=== PATIENT | male | born 1970 | race African-American/Black ===

== ENCOUNTER 2019-12-13 19:45 | Inpatient (IN) ==
[~2019-12-13 19:45] MED LIST: CLINDAMYCIN INJ 600 MG in PREMIX 1 EACH IV SCH
[2019-12-13] MEDS ORDERED: ONDANSETRON 4 MG/2 ML VIAL IV STA (21:17)
[2019-12-13] MEDS ORDERED: fentaNYL 100 MCG/2 ML VIAL IV STA (21:17)
[2019-12-13] MEDS ORDERED: PIPERACILLIN/TAZOBACTAM 3,375 MG in SODIUM CHLORIDE 0.9% 100 ML IV STA (21:17)
[2019-12-13] MEDS ORDERED: SODIUM CHLORIDE 0.9% 500 ML IV STA (21:17)
[2019-12-13] MEDS ORDERED: VANCOMYCIN INJ 1,000 MG in SODIUM CHLORIDE 0.9% 250 ML IV STA (21:17)
[2019-12-13 22:09] LABS: Basophils % 0.2 % (0.0-0.8); Eosinophils # 0.1 10*3/uL (0.0-0.87); Eosinophils % 0.8 % (0.00-10.9); Hematocrit 40.7 VOL% (42.0-52.0); Hemoglobin 13.6 GM/DL (14.0-18.0); Immature Granulocytes % 0.3 %; Immature Granulocytes Absolute 0.04 #; Lymphocytes # 1.3 10*3/uL (1.4-4.0); Lymphocytes % 9.9 % (21.2-54.2); Mean Corpuscular HGB Conc 33.4 GM/DL (32-36); Mean Corpuscular Volume 81.9 FL (87-102); Mean Platelet Volume 11.1 FL (9.6-12.0); Monocytes % 8.8 % (1.7-12.7); Platelet Count 308 T/CUMM (130-400); Red Blood Count 4.97 MC/CUMM (3.8-5.5); Red Cell Distribution Width 13.4 % (9.3-17.3)
[2019-12-13 22:18] LABS: INR 1.1; PT Patient Result 11.6 SECS (9.8-11.9)
[2019-12-13 22:48] LABS: Alanine Aminotransferase 19 U/L (16-61); Albumin 2.3 G/DL (3.4-5.0); Alkaline Phosphatase 81 U/L (45-117); Aspartate Amino Transferase 19 U/L (0-37); Blood Urea Nitrogen 22 MG/DL (7-18); Calcium 9.2 MG/DL (8.5-10.1); Estimated Glom Filtration Rate 54 ML/MIN; Ferritin 626.1 ng/ml (26-388); Glucose 367 MG/DL (74-106); Osmolality,Calculated 274.1 MOS/KG (273-304); Total Protein 8.7 G/DL (6.4-8.3); Troponin I 0.019 NG/ML (0.00-0.045)
[2019-12-13] MEDS ORDERED: PROMETHAZINE 25 MG/1 ML VIAL IM PRN (23:56)
[2019-12-13] MEDS ORDERED: ZALEPLON 5 MG CAPSULE PO PRN (23:56)
[2019-12-13] MEDS ORDERED: NICOTINE 21 MG/24 HR PATCH TRANSDERM PRN (23:56)
[2019-12-13] MEDS ORDERED: GLUCAGON 1 MG VIAL IM PRN (23:56)
[2019-12-13] MEDS ORDERED: diphenhydrAMINE CAP 25 MG CAPSULE PO PRN (23:56)
[2019-12-13] MEDS ORDERED: DEXTROSE 50% 25 GM/50 ML VIAL IV PRN ×2 (23:56)
[2019-12-13] MEDS ORDERED: guaiFENesin/DM ER 600-30 MG TABLET PO PRN (23:56)
[2019-12-13] MEDS ORDERED: ONDANSETRON 4 MG/2 ML VIAL IV PRN (23:56)
[2019-12-14] MEDS ORDERED: SODIUM CHLORIDE 0.9% 1,000 ML IV ONE (01:16)
[2019-12-14] MEDS: INSULIN LISPRO 100 UNIT/ML SUBCUT SCH ×5 (02:13→21:30)
[2019-12-14] MEDS: CLINDAMYCIN INJ 600 MG in PREMIX 1 EACH IV SCH ×3 (02:14→17:24)
[2019-12-14] MEDS: ENOXAPARIN 100 MG/ML SYRINGE SUBCUT SCH ×2 (02:14→13:41)
[2019-12-14] MEDS: SODIUM CHLORIDE 0.9% 1,000 ML IV SCH ×2 (04:33→21:29)
[2019-12-14 06:10] LABS: Basophils % 0.2 % (0.0-0.8); Eosinophils # 0.2 10*3/uL (0.0-0.87); Eosinophils % 1.4 % (0.00-10.9); Hematocrit 34.1 VOL% (42.0-52.0); Hemoglobin 11.4 GM/DL (14.0-18.0); Immature Granulocytes % 0.4 %; Immature Granulocytes Absolute 0.04 #; Lymphocytes # 1.7 10*3/uL (1.4-4.0); Lymphocytes % 15.4 % (21.2-54.2); Mean Corpuscular HGB Conc 33.4 GM/DL (32-36); Mean Corpuscular Volume 82.8 FL (87-102); Mean Platelet Volume 11.2 FL (9.6-12.0); Monocytes % 9.8 % (1.7-12.7); Neutrophils % 72.8 % (38.7-73.9); Platelet Count 265 T/CUMM (130-400); Red Blood Count 4.12 MC/CUMM (3.8-5.5); Red Cell Distribution Width 13.6 % (9.3-17.3); White Blood Count 10.8 T/CUMM (4-12)
[2019-12-14 06:31] LABS: Calcium 8.1 MG/DL (8.5-10.1); Osmolality,Calculated 279.5 MOS/KG (273-304)
[2019-12-14] MEDS ORDERED: ENOXAPARIN 40 MG/0.4 ML SYRINGE SUBCUT SCH (09:00)
[2019-12-14] MEDS: amLODIPine 10 MG TABLET PO SCH (09:24)
[2019-12-14] MEDS: METOPROLOL SUCCINATE XL 50 MG TABLET PO SCH (09:24)
[2019-12-14] MEDS: TAMSULOSIN 0.4 MG CAPSULE PO SCH (09:24)
[2019-12-14] MEDS: DOCUSATE SODIUM 100 MG CAPSULE PO SCH ×2 (09:24→21:30)
[2019-12-14] MEDS: PANTOPRAZOLE 40 MG TABLET PO SCH (09:24)
[2019-12-15] MEDS: SODIUM CHLORIDE 0.9% 1,000 ML IV SCH ×3 (01:41→17:31)
[2019-12-15] MEDS: CLINDAMYCIN INJ 600 MG in PREMIX 1 EACH IV SCH ×3 (02:00→17:30)
[2019-12-15] MEDS: ENOXAPARIN 100 MG/ML SYRINGE SUBCUT SCH ×2 (02:01→14:09)
[2019-12-15] MEDS: hydrALAZINE 20 MG/1 ML VIAL IV PRN (04:38)
[2019-12-15] MEDS: ACETAMINOPHEN 325 MG TABLET PO PRN ×2 (04:40→20:56)
[2019-12-15] MEDS ORDERED: LABETALOL 20 MG/4 ML SYRINGE IV ONE (08:13)
[2019-12-15] MEDS ORDERED: ceFAZolin 1,000 MG in SYRINGE 1 EACH IV ONE (08:14)
[2019-12-15] MEDS ORDERED: LIDOCAINE 2% 5 ML VIAL ONE (08:14)
[2019-12-15] MEDS ORDERED: propofoL 200 MG/20 ML VIAL IV ONE (08:14)
[2019-12-15] MEDS ORDERED: SODIUM CHLORIDE 0.9% 250 ML IV ONE (08:15)
[2019-12-15] MEDS ORDERED: MIDAZOLAM 2 MG/2 ML VIAL ONE (08:15)
[2019-12-15] MEDS ORDERED: KETAMINE 500 MG/10 ML VIAL ONE (08:15)
[2019-12-15] MEDS ORDERED: fentaNYL 100 MCG/2 ML VIAL ONE (08:15)
[2019-12-15] MEDS ORDERED: ONDANSETRON 4 MG/2 ML VIAL ONE (08:15)
[2019-12-15] MEDS ORDERED: LACTATED RINGERS 1,000 ML IV ONE (08:15)
[2019-12-15] MEDS ORDERED: LABETALOL 100 MG/20 ML VIAL IV ONE (08:16)
[2019-12-15 09:09] LABS: Basophils % 0.1 % (0.0-0.8); Eosinophils # 0.2 10*3/uL (0.0-0.87); Eosinophils % 1.8 % (0.00-10.9); Hematocrit 34.8 VOL% (42.0-52.0); Hemoglobin 11.3 GM/DL (14.0-18.0); Immature Granulocytes % 0.4 %; Immature Granulocytes Absolute 0.04 #; Lymphocytes # 1.8 10*3/uL (1.4-4.0); Lymphocytes % 19.5 % (21.2-54.2); Mean Corpuscular HGB Conc 32.5 GM/DL (32-36); Mean Corpuscular Volume 83.5 FL (87-102); Mean Platelet Volume 10.8 FL (9.6-12.0); Monocytes % 8.9 % (1.7-12.7); Neutrophils % 69.3 % (38.7-73.9); Platelet Count 250 T/CUMM (130-400); Red Blood Count 4.17 MC/CUMM (3.8-5.5); Red Cell Distribution Width 13.7 % (9.3-17.3)
[2019-12-15] MEDS: INSULIN LISPRO 100 UNIT/ML SUBCUT SCH ×4 (09:23→20:57)
[2019-12-15 09:24] LABS: Calcium 8.2 MG/DL (8.5-10.1)
[2019-12-15] MEDS ORDERED: GLUCAGON 1 MG VIAL IM PRN (09:44)
[2019-12-15] MEDS ORDERED: DEXTROSE 10% 250 ML BAG IV PRN (09:44)
[2019-12-15] MEDS: DOCUSATE SODIUM 100 MG CAPSULE PO SCH ×2 (10:37→20:49)
[2019-12-15] MEDS: TAMSULOSIN 0.4 MG CAPSULE PO SCH (10:37)
[2019-12-15] MEDS: amLODIPine 10 MG TABLET PO SCH (10:37)
[2019-12-15] MEDS: METOPROLOL SUCCINATE XL 50 MG TABLET PO SCH (10:37)
[2019-12-15] MEDS: MORPHINE 4 MG/1 ML VIAL IV PRN ×2 (10:37→20:57)
[2019-12-15] MEDS: PANTOPRAZOLE 40 MG TABLET PO SCH (10:37)
[2019-12-16] MEDS: CLINDAMYCIN INJ 600 MG in PREMIX 1 EACH IV SCH ×3 (01:17→17:35)
[2019-12-16] MEDS: ENOXAPARIN 100 MG/ML SYRINGE SUBCUT SCH ×2 (02:30→16:27)
[2019-12-16] MEDS: MORPHINE 4 MG/1 ML VIAL IV PRN ×2 (06:02→10:46)
[2019-12-16] MEDS: SODIUM CHLORIDE 0.9% 1,000 ML IV SCH ×2 (06:06→16:29)
[2019-12-16 06:13] LABS: Basophils % 0.1 % (0.0-0.8); Eosinophils # 0.2 10*3/uL (0.0-0.87); Eosinophils % 2.5 % (0.00-10.9); Hematocrit 37.1 VOL% (42.0-52.0); Hemoglobin 11.6 GM/DL (14.0-18.0); Immature Granulocytes % 0.5 %; Immature Granulocytes Absolute 0.04 #; Lymphocytes # 1.6 10*3/uL (1.4-4.0); Lymphocytes % 19.5 % (21.2-54.2); Mean Corpuscular HGB Conc 31.3 GM/DL (32-36); Mean Corpuscular Volume 86.5 FL (87-102); Mean Platelet Volume 11.4 FL (9.6-12.0); Monocytes % 7.8 % (1.7-12.7); Neutrophils % 69.6 % (38.7-73.9); Platelet Count 267 T/CUMM (130-400); Red Blood Count 4.29 MC/CUMM (3.8-5.5); Red Cell Distribution Width 13.8 % (9.3-17.3); White Blood Count 8.2 T/CUMM (4-12)
[2019-12-16 06:39] LABS: Calcium 8.3 MG/DL (8.5-10.1); Osmolality,Calculated 275.8 MOS/KG (273-304)
[2019-12-16] MEDS: INSULIN LISPRO 100 UNIT/ML SUBCUT SCH ×4 (11:33→20:18)
[2019-12-16] MEDS ORDERED: propofoL 200 MG/20 ML VIAL IV ONE (13:15)
[2019-12-16] MEDS ORDERED: LIDOCAINE 2% 5 ML VIAL ONE (13:15)
[2019-12-16] MEDS ORDERED: SEVOFLURANE 1 UNIT/15 MINUTE INH ONE (13:15)
[2019-12-16] MEDS ORDERED: LACTATED RINGERS 1,000 ML IV ONE (13:16)
[2019-12-16] MEDS ORDERED: fentaNYL 100 MCG/2 ML VIAL ONE (13:16)
[2019-12-16] MEDS ORDERED: MIDAZOLAM 2 MG/2 ML VIAL ONE (13:16)
[2019-12-16] MEDS: PANTOPRAZOLE 40 MG TABLET PO SCH (16:28)
[2019-12-16] MEDS: amLODIPine 10 MG TABLET PO SCH (16:28)
[2019-12-16] MEDS: METOPROLOL SUCCINATE XL 50 MG TABLET PO SCH (16:28)
[2019-12-16] MEDS: TAMSULOSIN 0.4 MG CAPSULE PO SCH (16:28)
[2019-12-16] MEDS: DOCUSATE SODIUM 100 MG CAPSULE PO SCH ×2 (16:29→20:18)
[2019-12-16] MEDS: hydrALAZINE 20 MG/1 ML VIAL IV PRN (17:41)
[2019-12-17] MEDS: CLINDAMYCIN INJ 600 MG in PREMIX 1 EACH IV SCH ×3 (01:26→16:33)
[2019-12-17] MEDS: ENOXAPARIN 100 MG/ML SYRINGE SUBCUT SCH ×2 (01:27→14:23)
[2019-12-17 06:07] LABS: Basophils % 0.1 % (0.0-0.8); Eosinophils # 0.2 10*3/uL (0.0-0.87); Hematocrit 34.2 VOL% (42.0-52.0); Hemoglobin 10.9 GM/DL (14.0-18.0); Immature Granulocytes % 0.3 %; Immature Granulocytes Absolute 0.02 #; Lymphocytes # 1.7 10*3/uL (1.4-4.0); Lymphocytes % 24.9 % (21.2-54.2); Mean Corpuscular HGB Conc 31.9 GM/DL (32-36); Mean Corpuscular Volume 85.7 FL (87-102); Monocytes % 5.3 % (1.7-12.7); Neutrophils % 66.4 % (38.7-73.9); Platelet Count 277 T/CUMM (130-400); Red Blood Count 3.99 MC/CUMM (3.8-5.5); Red Cell Distribution Width 13.8 % (9.3-17.3); White Blood Count 6.8 T/CUMM (4-12)
[2019-12-17] MEDS: SODIUM CHLORIDE 0.9% 1,000 ML IV SCH ×2 (06:07→08:33)
[2019-12-17 06:46] LABS: Hypochromasia 1+; Platelet Estimate Adequate
[2019-12-17 06:53] LABS: Calcium 8.4 MG/DL (8.5-10.1)
[2019-12-17] MEDS: INSULIN LISPRO 100 UNIT/ML SUBCUT SCH ×4 (08:29→21:30)
[2019-12-17] MEDS: PANTOPRAZOLE 40 MG TABLET PO SCH (08:30)
[2019-12-17] MEDS: DOCUSATE SODIUM 100 MG CAPSULE PO SCH ×2 (08:30→21:30)
[2019-12-17] MEDS: METOPROLOL SUCCINATE XL 50 MG TABLET PO SCH (08:30)
[2019-12-17] MEDS: TAMSULOSIN 0.4 MG CAPSULE PO SCH (08:30)
[2019-12-17] MEDS: amLODIPine 10 MG TABLET PO SCH (08:30)
[2019-12-17] MEDS: MORPHINE 4 MG/1 ML VIAL IV PRN ×3 (14:28→22:09)
[2019-12-17] MEDS: hydrALAZINE 20 MG/1 ML VIAL IV PRN (16:34)
[2019-12-18] MEDS: SODIUM CHLORIDE 0.9% 1,000 ML IV SCH ×2 (01:18→11:59)
[2019-12-18] MEDS: CLINDAMYCIN INJ 600 MG in PREMIX 1 EACH IV SCH ×3 (01:18→17:42)
[2019-12-18] MEDS: ENOXAPARIN 100 MG/ML SYRINGE SUBCUT SCH ×2 (07:05→21:57)
[2019-12-18 07:13] LABS: Basophils % 0.4 % (0.0-0.8); Eosinophils # 0.2 10*3/uL (0.0-0.87); Hematocrit 35.9 VOL% (42.0-52.0); Hemoglobin 11.3 GM/DL (14.0-18.0); Immature Granulocytes % 0.4 %; Immature Granulocytes Absolute 0.02 #; Lymphocytes # 1.3 10*3/uL (1.4-4.0); Lymphocytes % 24.5 % (21.2-54.2); Mean Corpuscular HGB Conc 31.5 GM/DL (32-36); Mean Corpuscular Volume 85.9 FL (87-102); Mean Platelet Volume 11.9 FL (9.6-12.0); Monocytes % 7.2 % (1.7-12.7); Neutrophils % 64.5 % (38.7-73.9); Platelet Count 217 T/CUMM (130-400); Red Blood Count 4.18 MC/CUMM (3.8-5.5); Red Cell Distribution Width 13.8 % (9.3-17.3); White Blood Count 5.4 T/CUMM (4-12)
[2019-12-18 07:29] LABS: Calcium 8.2 MG/DL (8.5-10.1)
[2019-12-18] MEDS: INSULIN LISPRO 100 UNIT/ML SUBCUT SCH ×4 (09:33→21:58)
[2019-12-18] MEDS: METOPROLOL SUCCINATE XL 50 MG TABLET PO SCH (11:14)
[2019-12-18] MEDS: TAMSULOSIN 0.4 MG CAPSULE PO SCH (11:15)
[2019-12-18] MEDS: PANTOPRAZOLE 40 MG TABLET PO SCH (11:15)
[2019-12-18] MEDS: amLODIPine 10 MG TABLET PO SCH (11:15)
[2019-12-18] MEDS: DOCUSATE SODIUM 100 MG CAPSULE PO SCH ×2 (11:16→21:57)
[2019-12-18] MEDS: ACETAMINOPHEN 325 MG TABLET PO PRN (11:18)
[2019-12-19] MEDS: SODIUM CHLORIDE 0.9% 1,000 ML IV SCH ×2 (01:13→09:26)
[2019-12-19] MEDS: CLINDAMYCIN INJ 600 MG in PREMIX 1 EACH IV SCH ×2 (01:14→09:48)
[2019-12-19 06:59] LABS: Basophils % 0.3 % (0.0-0.8); Eosinophils # 0.2 10*3/uL (0.0-0.87); Eosinophils % 2.7 % (0.00-10.9); Hematocrit 33.8 VOL% (42.0-52.0); Immature Granulocytes % 0.3 %; Immature Granulocytes Absolute 0.02 #; Lymphocytes # 1.9 10*3/uL (1.4-4.0); Mean Corpuscular HGB Conc 32.5 GM/DL (32-36); Mean Corpuscular Volume 85.4 FL (87-102); Mean Platelet Volume 10.7 FL (9.6-12.0); Monocytes % 5.7 % (1.7-12.7); Platelet Count 314 T/CUMM (130-400); Red Blood Count 3.96 MC/CUMM (3.8-5.5); Red Cell Distribution Width 13.4 % (9.3-17.3)
[2019-12-19 07:22] LABS: Calcium 8.3 MG/DL (8.5-10.1)
[2019-12-19] MEDS: MORPHINE 4 MG/1 ML VIAL IV PRN (09:09)
[2019-12-19] MEDS: DOCUSATE SODIUM 100 MG CAPSULE PO SCH (09:25)
[2019-12-19] MEDS: amLODIPine 10 MG TABLET PO SCH (09:25)
[2019-12-19] MEDS: TAMSULOSIN 0.4 MG CAPSULE PO SCH (09:25)
[2019-12-19] MEDS: PANTOPRAZOLE 40 MG TABLET PO SCH (09:25)
[2019-12-19] MEDS: METOPROLOL SUCCINATE XL 50 MG TABLET PO SCH (09:25)
[2019-12-19] MEDS: INSULIN LISPRO 100 UNIT/ML SUBCUT SCH ×3 (09:27→17:27)
[2019-12-19] MEDS ORDERED: VANCOMYCIN INJ 1,500 MG in SODIUM CHLORIDE 0.9% 500 ML IV SCH (10:00)
[2019-12-19] MEDS: ENOXAPARIN 100 MG/ML SYRINGE SUBCUT SCH (10:18)
[2019-12-19 17:06] VITALS: BP 149/98
== END 2019-12-19 17:25 | disposition home health service (06) | DRG 617 ==
LOC: N.ED 19:45 → N.EDINP 23:56 → SUATTDRO 23:56 → N.EDINP 12-14 00:55 → N.3E 12-14 01:08
PROVIDERS: ADMIT Internal Medicine; ATTEND Family Medicine

== ENCOUNTER 2020-03-04 16:48 | Inpatient (IN) ==
[2020-03-04 17:53] LABS: Basophils % 0.1 % (0.0-0.8); Eosinophils % 0.3 % (0.00-10.9); Hematocrit 37.8 VOL% (42.0-52.0); Immature Granulocytes % 0.5 %; Immature Granulocytes Absolute 0.07 #; Lymphocytes # 1.5 10*3/uL (1.4-4.0); Lymphocytes % 10.4 % (21.2-54.2); Mean Corpuscular HGB Conc 31.7 GM/DL (32-36); Mean Corpuscular Volume 85.3 FL (87-102); Mean Platelet Volume 12.2 FL (9.6-12.0); Monocytes % 7.5 % (1.7-12.7); Neutrophils % 81.2 % (38.7-73.9); Platelet Count 188 T/CUMM (130-400); Red Blood Count 4.43 MC/CUMM (3.8-5.5); Red Cell Distribution Width 14.3 % (9.3-17.3); White Blood Count 14.5 T/CUMM (4-12)
[2020-03-04] MEDS ORDERED: ACETAMINOPHEN 325 MG TABLET PO ONE (18:18)
[2020-03-04] MEDS ORDERED: SODIUM CHLORIDE 0.9% 500 ML IV STA ×2 (18:18→19:38)
[2020-03-04 19:15] LABS: Sedimentation Rate-Westergren 81 MM/HR (0-15)
[2020-03-04 19:27] LABS: Albumin 2.9 G/DL (3.4-5.0); Bilirubin,Total 0.4 MG/DL (0.2-1.0); Calcium 8.6 MG/DL (8.5-10.1); Osmolality,Calculated 277.7 MOS/KG (273-304); Total Protein 7.8 G/DL (6.4-8.3)
[2020-03-04 19:29] LABS: Eosinophils 1 % (0-10); Lymphocytes 11 % (20-55); Platelet Estimate Adequate; Segmented Neutrophils 80 % (50-85); Total Cells Counted 100
[2020-03-04] MEDS ORDERED: NICOTINE 21 MG/24 HR PATCH TRANSDERM PRN (20:41)
[2020-03-04] MEDS ORDERED: GLUCAGON 1 MG VIAL IM PRN (20:41)
[2020-03-04] MEDS ORDERED: ACETAMINOPHEN 325 MG TABLET PO PRN (20:41)
[2020-03-04] MEDS ORDERED: diphenhydrAMINE CAP 25 MG CAPSULE PO PRN (20:41)
[2020-03-04] MEDS ORDERED: guaiFENesin/DM ER 600-30 MG TABLET PO PRN (20:41)
[2020-03-04] MEDS ORDERED: DEXTROSE 50% 25 GM/50 ML VIAL IV PRN (20:41)
[2020-03-04] MEDS: LINEZOLID INJ 600 MG in PREMIX 1 EACH IV SCH (20:45)
[2020-03-05] MEDS: MORPHINE 4 MG/1 ML VIAL IV PRN ×4 (01:09→22:20)
[2020-03-05] MEDS: INSULIN REGULAR 100 UNIT/ML SUBCUT SCH ×4 (01:14→17:57)
[2020-03-05 05:51] LABS: Basophils % 0.3 % (0.0-0.8); Eosinophils # 0.1 10*3/uL (0.0-0.87); Eosinophils % 1.2 % (0.00-10.9); Hematocrit 34.6 VOL% (42.0-52.0); Hemoglobin 10.9 GM/DL (14.0-18.0); Immature Granulocytes % 0.3 %; Immature Granulocytes Absolute 0.04 #; Lymphocytes # 1.5 10*3/uL (1.4-4.0); Lymphocytes % 12.9 % (21.2-54.2); Mean Corpuscular HGB Conc 31.5 GM/DL (32-36); Mean Corpuscular Volume 84.6 FL (87-102); Mean Platelet Volume 12.2 FL (9.6-12.0); Monocytes % 9.6 % (1.7-12.7); Neutrophils % 75.7 % (38.7-73.9); Platelet Count 165 T/CUMM (130-400); Red Blood Count 4.09 MC/CUMM (3.8-5.5); Red Cell Distribution Width 14.2 % (9.3-17.3); White Blood Count 11.7 T/CUMM (4-12)
[2020-03-05 06:32] LABS: Albumin 2.4 G/DL (3.4-5.0); Bilirubin,Total 0.7 MG/DL (0.2-1.0); Calcium 8.4 MG/DL (8.5-10.1); Total Protein 7.1 G/DL (6.4-8.3)
[2020-03-05] MEDS ORDERED: LINEZOLID INJ 600 MG in PREMIX 1 EACH IV SCH (09:00)
[2020-03-05] MEDS: LINEZOLID INJ 600 MG in PREMIX 1 EACH IV SCH ×2 (09:27→21:08)
[2020-03-05] MEDS ORDERED: BUPIVACAINE MPF 0.25% 30 ML VIAL ONE (12:02)
[2020-03-05] MEDS ORDERED: LIDOCAINE 1% 20 ML VIAL ONE (12:02)
[2020-03-05] MEDS ORDERED: DEXMEDETOMIDINE 200 MCG/2 ML VIAL ONE (12:08)
[2020-03-05] MEDS ORDERED: LACTATED RINGERS 1,000 ML IV SCH (12:30)
[2020-03-05] MEDS ORDERED: fentaNYL 100 MCG/2 ML VIAL ONE (13:46)
[2020-03-05] MEDS ORDERED: propofoL 200 MG/20 ML VIAL IV ONE (13:46)
[2020-03-05] MEDS ORDERED: LIDOCAINE 2% 5 ML VIAL ONE (13:46)
[2020-03-05] MEDS ORDERED: SODIUM CHLORIDE 0.9% 100 ML IV ONE (13:46)
[2020-03-05] MEDS ORDERED: ONDANSETRON 4 MG/2 ML VIAL ONE (13:46)
[2020-03-05] MEDS ORDERED: MIDAZOLAM 2 MG/2 ML VIAL ONE (13:46)
[2020-03-05] MEDS ORDERED: GLUCAGON 1 MG VIAL IM PRN (14:56)
[2020-03-05] MEDS ORDERED: DEXTROSE 50% 25 GM/50 ML VIAL IV PRN (14:56)
[2020-03-05] MEDS: ACETAMINOPHEN 500 MG TABLET PO PRN (18:23)
[2020-03-06] MEDS: INSULIN REGULAR 100 UNIT/ML SUBCUT SCH ×4 (00:14→17:45)
[2020-03-06] MEDS: MORPHINE 4 MG/1 ML VIAL IV PRN ×4 (04:20→22:02)
[2020-03-06] MEDS: SODIUM HYPOCHLORITE 0.25% IRRIG 473 ML BOTTLE TOP SCH ×2 (04:48→11:15)
[2020-03-06 06:19] LABS: Basophils % 0.2 % (0.0-0.8); Eosinophils # 0.2 10*3/uL (0.0-0.87); Eosinophils % 2.2 % (0.00-10.9); Hemoglobin 10.8 GM/DL (14.0-18.0); Immature Granulocytes % 0.2 %; Immature Granulocytes Absolute 0.02 #; Lymphocytes # 1.3 10*3/uL (1.4-4.0); Lymphocytes % 15.3 % (21.2-54.2); Mean Corpuscular HGB Conc 31.8 GM/DL (32-36); Mean Corpuscular Volume 84.6 FL (87-102); Mean Platelet Volume 12.6 FL (9.6-12.0); Monocytes % 8.2 % (1.7-12.7); Neutrophils % 73.9 % (38.7-73.9); Platelet Count 182 T/CUMM (130-400); Red Blood Count 4.02 MC/CUMM (3.8-5.5); White Blood Count 8.6 T/CUMM (4-12)
[2020-03-06 06:47] LABS: Calcium 8.2 MG/DL (8.5-10.1); Osmolality,Calculated 279.1 MOS/KG (273-304)
[2020-03-06 07:05] LABS: Hypochromasia 1+; Microcytosis 1+; Platelet Estimate Adequate
[2020-03-06] MEDS ORDERED: INSULIN GLARGINE 100 UNIT/ML SUBCUT SCH (09:00)
[2020-03-06] MEDS: LINEZOLID INJ 600 MG in PREMIX 1 EACH IV SCH ×2 (10:08→22:42)
[2020-03-06] MEDS: CEFEPIME 1,000 MG in SODIUM CHLORIDE 0.9% 100 ML IV SCH ×3 (11:15→22:01)
[2020-03-06] MEDS: hydrALAZINE 20 MG/1 ML VIAL IV PRN (22:02)
[2020-03-07] MEDS: ONDANSETRON 4 MG/2 ML VIAL IV PRN (00:49)
[2020-03-07] MEDS: INSULIN REGULAR 100 UNIT/ML SUBCUT SCH ×4 (00:49→19:29)
[2020-03-07] MEDS: MORPHINE 4 MG/1 ML VIAL IV PRN ×3 (02:41→22:55)
[2020-03-07] MEDS: CEFEPIME 1,000 MG in SODIUM CHLORIDE 0.9% 100 ML IV SCH ×4 (04:29→22:56)
[2020-03-07 05:04] LABS: Basophils % 0.1 % (0.0-0.8); Eosinophils # 0.1 10*3/uL (0.0-0.87); Eosinophils % 1.7 % (0.00-10.9); Hemoglobin 10.9 GM/DL (14.0-18.0); Immature Granulocytes % 0.1 %; Immature Granulocytes Absolute 0.01 #; Lymphocytes # 1.1 10*3/uL (1.4-4.0); Lymphocytes % 15.3 % (21.2-54.2); Mean Corpuscular HGB Conc 31.1 GM/DL (32-36); Mean Corpuscular Volume 85.4 FL (87-102); Mean Platelet Volume 12.2 FL (9.6-12.0); Monocytes % 6.5 % (1.7-12.7); Neutrophils % 76.3 % (38.7-73.9); Platelet Count 208 T/CUMM (130-400); Red Cell Distribution Width 13.9 % (9.3-17.3); White Blood Count 7.1 T/CUMM (4-12)
[2020-03-07 05:13] LABS: Calcium 8.4 MG/DL (8.5-10.1); Osmolality,Calculated 281.1 MOS/KG (273-304)
[2020-03-07] MEDS ORDERED: amLODIPine 10 MG TABLET PO ONE (09:56)
[2020-03-07] MEDS ORDERED: hydroCHLOROthiazide 25 MG TABLET PO ONE (10:15)
[2020-03-07] MEDS: ACETAMINOPHEN 500 MG TABLET PO PRN ×2 (10:37→16:36)
[2020-03-07] MEDS: INSULIN GLARGINE 100 UNIT/ML SUBCUT SCH (10:38)
[2020-03-07] MEDS: LINEZOLID INJ 600 MG in PREMIX 1 EACH IV SCH ×2 (10:39→21:41)
[2020-03-07] MEDS: SODIUM HYPOCHLORITE 0.25% IRRIG 473 ML BOTTLE TOP SCH (10:45)
[2020-03-07] MEDS: hydrALAZINE 20 MG/1 ML VIAL IV PRN (14:03)
[2020-03-07] MEDS ORDERED: ZALEPLON 5 MG CAPSULE PO SCH (21:00)
[2020-03-08] MEDS: INSULIN REGULAR 100 UNIT/ML SUBCUT SCH ×3 (01:31→14:10)
[2020-03-08] MEDS: MORPHINE 4 MG/1 ML VIAL IV PRN (04:58)
[2020-03-08] MEDS: CEFEPIME 1,000 MG in SODIUM CHLORIDE 0.9% 100 ML IV SCH ×2 (04:58→09:53)
[2020-03-08 05:35] LABS: Basophils % 0.4 % (0.0-0.8); Eosinophils # 0.2 10*3/uL (0.0-0.87); Eosinophils % 3.4 % (0.00-10.9); Hematocrit 35.2 VOL% (42.0-52.0); Hemoglobin 11.4 GM/DL (14.0-18.0); Immature Granulocytes % 0.2 %; Immature Granulocytes Absolute 0.01 #; Lymphocytes # 1.7 10*3/uL (1.4-4.0); Lymphocytes % 30.5 % (21.2-54.2); Mean Corpuscular HGB Conc 32.4 GM/DL (32-36); Mean Corpuscular Volume 83.2 FL (87-102); Mean Platelet Volume 11.8 FL (9.6-12.0); Monocytes % 8.8 % (1.7-12.7); Neutrophils % 56.7 % (38.7-73.9); Platelet Count 221 T/CUMM (130-400); Red Blood Count 4.23 MC/CUMM (3.8-5.5); Red Cell Distribution Width 13.9 % (9.3-17.3); White Blood Count 5.7 T/CUMM (4-12)
[2020-03-08 05:46] LABS: Calcium 8.4 MG/DL (8.5-10.1); Osmolality,Calculated 279.5 MOS/KG (273-304)
[2020-03-08] MEDS: hydrALAZINE 20 MG/1 ML VIAL IV PRN (06:03)
[2020-03-08] MEDS: ONDANSETRON 4 MG/2 ML VIAL IV PRN (07:37)
[2020-03-08] MEDS ORDERED: ERGOCALCIFEROL 50,000 UNIT CAPSULE PO SCH (09:00)
[2020-03-08] MEDS ORDERED: hydroCHLOROthiazide 25 MG TABLET PO SCH (09:00)
[2020-03-08] MEDS ORDERED: TAMSULOSIN 0.4 MG CAPSULE PO SCH (09:00)
[2020-03-08] MEDS ORDERED: amLODIPine 10 MG TABLET PO SCH (09:00)
[2020-03-08] MEDS ORDERED: SULFAMETHOX/TRIMETHOPRIM 800-160 MG TABLET PO SCH (09:30)
[2020-03-08] MEDS: LINEZOLID INJ 600 MG in PREMIX 1 EACH IV SCH (09:35)
[2020-03-08] MEDS: INSULIN GLARGINE 100 UNIT/ML SUBCUT SCH (09:53)
[2020-03-08] MEDS: SODIUM HYPOCHLORITE 0.25% IRRIG 473 ML BOTTLE TOP SCH (09:53)
[2020-03-08] MEDS: ACETAMINOPHEN 500 MG TABLET PO PRN (10:56)
[2020-03-08 11:29] VITALS: BP 140/79
== END 2020-03-08 15:05 | disposition home or self-care (01) | DRG 630 ==
LOC: N.ED 16:48 → N.EDINP 20:17 → SUATTDRO 20:17 → N.3E 21:50
PROVIDERS: ADMIT Internal Medicine Geriatric Medicine; ATTEND Internal Medicine

== ENCOUNTER 2021-03-14 21:25 | Inpatient (IN) ==
[2021-03-14 22:28] LABS: Basophils % 0.1 % (0.0-0.8); Hematocrit 43.1 VOL% (42.0-52.0); Hemoglobin 13.8 GM/DL (14.0-18.0); Immature Granulocytes % 0.6 %; Immature Granulocytes Absolute 0.05 #; Lymphocytes # 1.1 10*3/uL (1.4-4.0); Lymphocytes % 12.3 % (21.2-54.2); Mean Corpuscular Volume 82.9 FL (87-102); Mean Platelet Volume 12.7 FL (9.6-12.0); Monocytes % 2.9 % (1.7-12.7); Neutrophils % 84.1 % (38.7-73.9); Platelet Count 111 T/CUMM (130-400); Red Cell Distribution Width 15.2 % (9.3-17.3)
[2021-03-14 22:42] LABS: Alanine Aminotransferase 57 U/L (16-61); Albumin 2.1 G/DL (3.4-5.0); Alkaline Phosphatase 70 U/L (45-117); Aspartate Amino Transferase 209 U/L (0-37); Blood Urea Nitrogen 67 MG/DL (7-18); Calcium 7.4 MG/DL (8.5-10.1); Carbon Dioxide 24 MMOL/L (21-32); Estimated Glom Filtration Rate 25 ML/MIN; Glucose 491 MG/DL (74-106); Osmolality,Calculated 289.6 MOS/KG (273-304); Potassium 5.5 MMOL/L (3.5-5.1); Sodium 124 MMOL/L (136-145); Total Protein 7.2 G/DL (6.4-8.2)
[2021-03-14] MEDS ORDERED: SODIUM CHLORIDE 0.9% 1,000 ML IV STA ×2 (22:58)
[2021-03-14] MEDS ORDERED: AZITHROMYCIN INJ 500 MG in SODIUM CHLORIDE 0.9% 250 ML IV STA (22:58)
[2021-03-14] MEDS ORDERED: DEXAMETHASONE 4 MG/1 ML VIAL IV STA (22:59)
[2021-03-14] MEDS ORDERED: DEXTROSE 50% 25 GM/50 ML VIAL IV PRN ×2 (23:20)
[2021-03-14] MEDS ORDERED: ONDANSETRON 4 MG/2 ML VIAL IV PRN (23:20)
[2021-03-14] MEDS ORDERED: DOCUSATE SODIUM 100 MG CAPSULE PO PRN (23:20)
[2021-03-14] MEDS ORDERED: NICOTINE 21 MG/24 HR PATCH TRANSDERM PRN (23:20)
[2021-03-14] MEDS ORDERED: guaiFENesin/DM ER 600-30 MG TABLET PO PRN (23:20)
[2021-03-14] MEDS ORDERED: diphenhydrAMINE CAP 25 MG CAPSULE PO PRN (23:20)
[2021-03-14] MEDS ORDERED: GLUCAGON 1 MG VIAL IM PRN ×2 (23:20)
[2021-03-14] MEDS ORDERED: LABETALOL 20 MG/4 ML SYRINGE IV STA (23:21)
[2021-03-14] MEDS ORDERED: SODIUM POLYSTYRENE SULFATE 15 GM/60 ML BOTTLE PO STA (23:24)
[2021-03-14 23:27] LABS: ABG Base Excess -2.3 MMOL/L (-2.5-2.5); ABG HCO3 22.3 MMOL/L (20-26); ABG PCO2 33.2 MM HG (35-48); ABG PH 7.417 (7.35-7.45); ABG PO2 60.4 MM HG (80-95); ABG TCO2 18.6 MMOL/L (23-27)
[2021-03-14 23:49] LABS: Platelet Estimate Decreased
[2021-03-14] MEDS: AZITHROMYCIN INJ 500 MG in SODIUM CHLORIDE 0.9% 250 ML IV SCH (23:52)
[2021-03-15] MEDS: ZALEPLON 5 MG CAPSULE PO PRN
[2021-03-15] MEDS: cefTRIAXone 1,000 MG in SODIUM CHLORIDE 0.9% 100 ML IV SCH ×2 (00:07→22:30)
[2021-03-15] MEDS: ALBUTEROL 2.5 MG/3 ML NEB RESP TX SCH ×4 (00:40→19:18)
[2021-03-15] MEDS: SODIUM CHLORIDE 0.9% 1,000 ML IV SCH ×2 (02:29→13:26)
[2021-03-15 03:59] LABS: Albumin 1.6 G/DL (3.4-5.0); Bilirubin,Total 0.4 MG/DL (0.20-1.00); Calcium 6.1 MG/DL (8.5-10.1); Osmolality,Calculated 299.5 MOS/KG (273-304); Potassium 4.8 MMOL/L (3.5-5.1); Total Protein 5.5 G/DL (6.4-8.2)
[2021-03-15 04:43] LABS: Basophils % 0.1 % (0.0-0.8); Hematocrit 37.2 VOL% (42.0-52.0); Hemoglobin 11.8 GM/DL (14.0-18.0); Immature Granulocytes % 0.4 %; Immature Granulocytes Absolute 0.03 #; Lymphocytes # 0.7 10*3/uL (1.4-4.0); Lymphocytes % 9.2 % (21.2-54.2); Mean Corpuscular HGB Conc 31.7 GM/DL (32-36); Mean Platelet Volume 13.4 FL (9.6-12.0); Monocytes % 3.4 % (1.7-12.7); Neutrophils % 86.9 % (38.7-73.9); Platelet Count 93 T/CUMM (130-400); Red Blood Count 4.43 MC/CUMM (3.8-5.5); Red Cell Distribution Width 15.2 % (9.3-17.3); White Blood Count 7.7 T/CUMM (4-12)
[2021-03-15 05:33] LABS: Platelet Estimate Decreased
[2021-03-15 07:31] LABS: ABG Base Excess -6.6 MMOL/L (-2.5-2.5); ABG HCO3 18.9 MMOL/L (20-26); ABG Oxygen Saturation 87.9 % (95-100); ABG PCO2 35.2 MM HG (35-48); ABG PH 7.331 (7.35-7.45); ABG PO2 62.8 MM HG (80-95); ABG TCO2 16.6 MMOL/L (23-27)
[2021-03-15] MEDS: INSULIN LISPRO 100 UNIT/ML SUBCUT SCH ×4 (09:11→21:00)
[2021-03-15] MEDS: PANTOPRAZOLE 40 MG TABLET PO SCH (09:15)
[2021-03-15] MEDS: ASCORBIC ACID 500 MG TABLET PO SCH ×2 (09:20→21:00)
[2021-03-15] MEDS: DEXAMETHASONE 10 MG/1 ML VIAL IV SCH (09:20)
[2021-03-15] MEDS: CHOLECALCIFEROL 1,000 UNIT TABLET PO SCH (09:20)
[2021-03-15] MEDS: ZINC GLUCONATE 50 MG TABLET PO SCH (09:20)
[2021-03-15] MEDS: INSULIN GLARGINE 100 UNIT/ML SUBCUT SCH ×2 (12:19→21:00)
[2021-03-15] MEDS ORDERED: SODIUM CHLORIDE 0.9% 1,000 ML IV PRN (13:13)
[2021-03-15 16:31] LABS: Osmolality,Calculated 294.7 MOS/KG (273-304); Potassium 4.6 MMOL/L (3.5-5.1)
[2021-03-15] MEDS ORDERED: INSULIN GLARGINE 100 UNIT/ML SUBCUT SCH (21:00)
[2021-03-15] MEDS: AZITHROMYCIN INJ 500 MG in SODIUM CHLORIDE 0.9% 250 ML IV SCH (23:00)
[2021-03-15] MEDS: ACETAMINOPHEN 325 MG TABLET PO PRN (23:20)
[2021-03-15] MEDS ORDERED: ETOMIDATE 20 MG/10 ML VIAL IV ONE (23:45)
[2021-03-15] MEDS ORDERED: VECURONIUM 10 MG VIAL IV ONE (23:45)
[2021-03-16 00:06] LABS: ABG Base Excess -5.1 MMOL/L (-2.5-2.5); ABG HCO3 19.8 MMOL/L (20-26); ABG Oxygen Saturation 72.4 % (95-100); ABG PCO2 31.9 MM HG (35-48); ABG PH 7.384 (7.35-7.45); ABG PO2 41.8 MM HG (80-95); ABG TCO2 17.1 MMOL/L (23-27); Allen Test Positive; Pt O2 Delivery Device Other
[2021-03-16] MEDS: ALBUTEROL INHALER 18 GM INH SCH ×4 (01:11→18:14)
[2021-03-16 02:00] LABS: ABG Base Excess -4.7 MMOL/L (-2.5-2.5); ABG HCO3 20.3 MMOL/L (20-26); ABG Oxygen Saturation 83.8 % (95-100); ABG PCO2 34.3 MM HG (35-48); ABG PH 7.369 (7.35-7.45); ABG PO2 52.6 MM HG (80-95); ABG TCO2 17.8 MMOL/L (23-27); Allen Test Positive; Pt O2 Delivery Device BIPAP
[2021-03-16] MEDS: SODIUM CHLORIDE 0.9% 1,000 ML IV SCH ×2 (02:42→06:51)
[2021-03-16 04:37] LABS: ABG Base Excess -5.6 MMOL/L (-2.5-2.5); ABG HCO3 19.7 MMOL/L (20-26); ABG Oxygen Saturation 90.2 % (95-100); ABG PCO2 35.8 MM HG (35-48); ABG PH 7.343 (7.35-7.45); ABG PO2 65.7 MM HG (80-95); ABG TCO2 17.4 MMOL/L (23-27); Allen Test Positive; Pt O2 Delivery Device BIPAP
[2021-03-16 06:13] LABS: Hematocrit 36.7 VOL% (42.0-52.0); Hemoglobin 11.6 GM/DL (14.0-18.0); Immature Granulocytes % 0.9 %; Immature Granulocytes Absolute 0.09 #; Lymphocytes # 0.9 10*3/uL (1.4-4.0); Lymphocytes % 9.7 % (21.2-54.2); Mean Corpuscular HGB Conc 31.6 GM/DL (32-36); Mean Corpuscular Volume 84.2 FL (87-102); Mean Platelet Volume 12.7 FL (9.6-12.0); Monocytes % 2.9 % (1.7-12.7); Neutrophils % 86.5 % (38.7-73.9); Platelet Count 135 T/CUMM (130-400); Red Blood Count 4.36 MC/CUMM (3.8-5.5); Red Cell Distribution Width 15.4 % (9.3-17.3); White Blood Count 9.7 T/CUMM (4-12)
[2021-03-16 06:53] LABS: Albumin 1.9 G/DL (3.4-5.0); Bilirubin,Total 0.4 MG/DL (0.20-1.00); Calcium 6.8 MG/DL (8.5-10.1); Osmolality,Calculated 295.2 MOS/KG (273-304); Potassium 4.7 MMOL/L (3.5-5.1); Total Protein 5.5 G/DL (6.4-8.2)
[2021-03-16] MEDS: MORPHINE 2 MG/1 ML SYRINGE IV PRN (07:21)
[2021-03-16] MEDS: METOPROLOL TARTRATE 5 MG/5 ML VIAL IV PRN ×2 (08:27→14:27)
[2021-03-16] MEDS: INSULIN GLARGINE 100 UNIT/ML SUBCUT SCH ×2 (08:40→20:32)
[2021-03-16] MEDS: INSULIN LISPRO 100 UNIT/ML SUBCUT SCH ×4 (08:40→20:32)
[2021-03-16] MEDS: DEXAMETHASONE 10 MG/1 ML VIAL IV SCH ×3 (09:08→17:50)
[2021-03-16] MEDS: ASCORBIC ACID 500 MG TABLET PO SCH ×2 (09:08→20:31)
[2021-03-16] MEDS: PANTOPRAZOLE 40 MG TABLET PO SCH (09:08)
[2021-03-16] MEDS: CHOLECALCIFEROL 1,000 UNIT TABLET PO SCH (09:09)
[2021-03-16] MEDS: ZINC GLUCONATE 50 MG TABLET PO SCH (09:09)
[2021-03-16 09:29] LABS: Band Neutrophils 12 % (0-10); Lymphocytes 11 % (20-55); Platelet Estimate Adequate; Segmented Neutrophils 75 % (50-85); Total Cells Counted 100
[2021-03-16 09:30] LABS: Anisocytosis 1+
[2021-03-16] MEDS ORDERED: ALBUMIN 5% 25 GM/500 ML VIAL IV SCH (09:30)
[2021-03-16] MEDS: HEPARIN DRIP 25,000 UNITS/500 ML PREMIX IV SCH (09:32)
[2021-03-16 10:15] LABS: Amorphous Crystals,Urine Few /HPF (Few); Bilirubin,Urine Negative (Negative); Blood, Urine Large mg/dL (Negative); Glucose,Urine (UA) >=500 mg/dL (Negative); Ketones,Urine Negative (Negative); Mucus,Urine Occasional /LPF (Occasional); Nitrite,Urine Negative (Negative); Protein,Urine >=500 MG/DL; RBC,Urine 1 /HPF (0-4); Urine Appearance CLOUDY (Clear); Urine Color Yellow (Yellow); Urine Specific Gravity 1.014 (1.001-1.035); Urine Urobilinogen < 2.0 EU/DL (0.2-1.0)
[2021-03-16] MEDS ORDERED: ALBUMIN 5% 12.5 GM/250 ML VIAL IV SCH (10:30)
[2021-03-16 10:35] LABS: HIV Antigen/Antibody Result Nonreactive (Nonreactive)
[2021-03-16] MEDS: ALBUMIN 25% 25 GM/100 ML VIAL IV SCH ×2 (10:37→14:32)
[2021-03-16] MEDS: FUROSEMIDE 100 MG/10 ML VIAL IV SCH ×2 (11:42→16:00)
[2021-03-16] MEDS ORDERED: AMIODARONE INJ 150 MG in DEXTROSE 5% 100 ML IV ONE (15:45)
[2021-03-16] MEDS ORDERED: AMIODARONE INJ 450 MG in DEXTROSE 5% 241 ML IV SCH ×2 (16:00→22:00)
[2021-03-16] MEDS ORDERED: DILTIAZEM 50 MG/10 ML VIAL IV ONE (19:10)
[2021-03-16] MEDS: DILTIAZEM INJ 100 MG in SODIUM CHLORIDE 0.9% 100 ML IV SCH (19:54)
[2021-03-16] MEDS: SODIUM BICARBONATE 650 MG TABLET PO SCH (20:31)
[2021-03-16] MEDS: ZALEPLON 5 MG CAPSULE PO PRN (21:24)
[2021-03-16 22:53] LABS: ABG Base Excess -6.3 MMOL/L (-2.5-2.5); ABG HCO3 19.1 MMOL/L (20-26); ABG Oxygen Saturation 88.2 % (95-100); ABG PCO2 34.5 MM HG (35-48); ABG PH 7.343 (7.35-7.45); ABG PO2 60.9 MM HG (80-95); ABG TCO2 16.9 MMOL/L (23-27); Allen Test Positive; Pt O2 Delivery Device BIPAP
[2021-03-16] MEDS: AZITHROMYCIN INJ 500 MG in SODIUM CHLORIDE 0.9% 250 ML IV SCH (23:45)
[2021-03-17] MEDS: ALBUTEROL INHALER 18 GM INH SCH ×4 (00:01→18:24)
[2021-03-17] MEDS: cefTRIAXone 1,000 MG in SODIUM CHLORIDE 0.9% 100 ML IV SCH ×2 (00:01→22:32)
[2021-03-17] MEDS: DEXAMETHASONE 10 MG/1 ML VIAL IV SCH ×5 (00:01→23:44)
[2021-03-17] MEDS: DILTIAZEM INJ 100 MG in SODIUM CHLORIDE 0.9% 100 ML IV SCH ×2 (02:36→18:30)
[2021-03-17 03:14] LABS: Hematocrit 34.4 VOL% (42.0-52.0); Hemoglobin 11.2 GM/DL (14.0-18.0); Immature Granulocytes % 0.9 %; Immature Granulocytes Absolute 0.08 #; Lymphocytes # 0.6 10*3/uL (1.4-4.0); Lymphocytes % 7.1 % (21.2-54.2); Mean Corpuscular HGB Conc 32.6 GM/DL (32-36); Mean Corpuscular Volume 83.9 FL (87-102); Mean Platelet Volume 12.1 FL (9.6-12.0); Monocytes % 3.3 % (1.7-12.7); Neutrophils % 88.7 % (38.7-73.9); Platelet Count 154 T/CUMM (130-400); Red Cell Distribution Width 15.8 % (9.3-17.3); White Blood Count 9.1 T/CUMM (4-12)
[2021-03-17 03:33] LABS: Albumin 2.2 G/DL (3.4-5.0); Bilirubin,Total 0.4 MG/DL (0.20-1.00); Calcium 7.1 MG/DL (8.5-10.1); Osmolality,Calculated 301.4 MOS/KG (273-304); Potassium 4.8 MMOL/L (3.5-5.1); Total Protein 6.3 G/DL (6.4-8.2)
[2021-03-17 05:04] LABS: ABG HCO3 18.7 MMOL/L (20-26); ABG Oxygen Saturation 95.7 % (95-100); ABG PCO2 33.4 MM HG (35-48); ABG PO2 89.2 MM HG (80-95); ABG TCO2 16.2 MMOL/L (23-27); Allen Test Positive; Pt O2 Delivery Device BIPAP
[2021-03-17] MEDS: INSULIN LISPRO 100 UNIT/ML SUBCUT SCH ×4 (08:08→20:31)
[2021-03-17] MEDS: SODIUM BICARBONATE 650 MG TABLET PO SCH ×2 (08:08→20:31)
[2021-03-17] MEDS: ZINC GLUCONATE 50 MG TABLET PO SCH (08:08)
[2021-03-17] MEDS: PANTOPRAZOLE 40 MG TABLET PO SCH (08:08)
[2021-03-17] MEDS: CHOLECALCIFEROL 1,000 UNIT TABLET PO SCH (08:08)
[2021-03-17] MEDS: INSULIN GLARGINE 100 UNIT/ML SUBCUT SCH ×2 (08:08→20:31)
[2021-03-17] MEDS: ASCORBIC ACID 500 MG TABLET PO SCH ×2 (08:08→20:31)
[2021-03-17] MEDS: HEPARIN DRIP 25,000 UNITS/500 ML PREMIX IV SCH (08:28)
[2021-03-17] MEDS: DILTIAZEM 30 MG TABLET PO SCH ×3 (10:19→20:30)
[2021-03-17] MEDS: METOCLOPRAMIDE 10 MG/2 ML VIAL IV SCH ×3 (12:57→23:45)
[2021-03-17] MEDS: MORPHINE 2 MG/1 ML SYRINGE IV PRN (14:01)
[2021-03-17] MEDS ORDERED: INSULIN GLARGINE 100 UNIT/ML SUBCUT ONE (19:48)
[2021-03-17] MEDS: HEPARIN 5,000 UNIT/1 ML VIAL IV PRN (20:32)
[2021-03-17] MEDS: LORazepam 1 MG TABLET PO PRN (20:32)
[2021-03-17] MEDS: AZITHROMYCIN INJ 500 MG in SODIUM CHLORIDE 0.9% 250 ML IV SCH (22:43)
[2021-03-18] MEDS: ALBUTEROL INHALER 18 GM INH SCH ×4 (01:26→18:07)
[2021-03-18] MEDS: MORPHINE 2 MG/1 ML SYRINGE IV PRN ×3 (01:46→12:04)
[2021-03-18 02:57] LABS: Albumin 2.2 G/DL (3.4-5.0); Bilirubin,Total 0.4 MG/DL (0.20-1.00); Calcium 7.4 MG/DL (8.5-10.1); Ferritin 1922.8 ng/ml (26-388); Osmolality,Calculated 300.2 MOS/KG (273-304); Potassium 4.3 MMOL/L (3.5-5.1); Total Protein 6.5 G/DL (6.4-8.2)
[2021-03-18 04:36] LABS: ABG Base Excess -4.8 MMOL/L (-2.5-2.5); ABG HCO3 20.4 MMOL/L (20-26); ABG Oxygen Saturation 90.7 % (95-100); ABG PCO2 33.2 MM HG (35-48); ABG PH 7.378 (7.35-7.45); ABG PO2 66.2 MM HG (80-95); ABG TCO2 17.4 MMOL/L (23-27)
[2021-03-18] MEDS: HEPARIN DRIP 25,000 UNITS/500 ML PREMIX IV SCH ×2 (05:13→23:13)
[2021-03-18] MEDS: METOCLOPRAMIDE 10 MG/2 ML VIAL IV SCH ×3 (06:30→17:40)
[2021-03-18] MEDS: DEXAMETHASONE 10 MG/1 ML VIAL IV SCH ×3 (06:30→17:40)
[2021-03-18] MEDS: DILTIAZEM 30 MG TABLET PO SCH ×3 (08:44→20:35)
[2021-03-18] MEDS: SODIUM BICARBONATE 650 MG TABLET PO SCH ×2 (08:45→20:35)
[2021-03-18] MEDS: PANTOPRAZOLE 40 MG TABLET PO SCH (08:45)
[2021-03-18] MEDS: ZINC GLUCONATE 50 MG TABLET PO SCH (08:45)
[2021-03-18] MEDS: CHOLECALCIFEROL 1,000 UNIT TABLET PO SCH (08:45)
[2021-03-18] MEDS: LORazepam 1 MG TABLET PO PRN (08:46)
[2021-03-18] MEDS: ASCORBIC ACID 500 MG TABLET PO SCH ×2 (08:46→20:35)
[2021-03-18] MEDS: INSULIN GLARGINE 100 UNIT/ML SUBCUT SCH ×2 (08:49→20:36)
[2021-03-18] MEDS: hydrALAZINE 20 MG/1 ML VIAL IV PRN (09:27)
[2021-03-18] MEDS: INSULIN LISPRO 100 UNIT/ML SUBCUT SCH ×4 (09:56→20:52)
[2021-03-18] MEDS: hydroCHLOROthiazide 25 MG TABLET PO SCH (12:00)
[2021-03-18] MEDS: LORazepam 1 MG TABLET PO SCH ×2 (14:30→20:36)
[2021-03-18] MEDS ORDERED: cloNIDine 0.2 MG/24 HR PATCH TRANSDERM SCH (17:30)
[2021-03-18] MEDS: cefTRIAXone 1,000 MG in SODIUM CHLORIDE 0.9% 100 ML IV SCH (22:39)
[2021-03-18] MEDS: AZITHROMYCIN INJ 500 MG in SODIUM CHLORIDE 0.9% 250 ML IV SCH (23:14)
[2021-03-19] MEDS: METOCLOPRAMIDE 10 MG/2 ML VIAL IV SCH ×2 (00:17→06:27)
[2021-03-19] MEDS: ALBUTEROL INHALER 18 GM INH SCH ×5 (00:17→21:00)
[2021-03-19] MEDS: DEXAMETHASONE 10 MG/1 ML VIAL IV SCH ×3 (00:17→18:32)
[2021-03-19] MEDS: LORazepam 1 MG TABLET PO SCH ×3 (02:42→14:13)
[2021-03-19] MEDS: MORPHINE 2 MG/1 ML SYRINGE IV PRN (02:43)
[2021-03-19] MEDS: hydrALAZINE 20 MG/1 ML VIAL IV PRN (02:49)
[2021-03-19 03:22] LABS: ABG Base Excess -2.4 MMOL/L (-2.5-2.5); ABG HCO3 22.4 MMOL/L (20-26); ABG Oxygen Saturation 97.2 % (95-100); ABG PCO2 31.4 MM HG (35-48); ABG PH 7.431 (7.35-7.45); ABG TCO2 18.2 MMOL/L (23-27)
[2021-03-19 05:21] LABS: Basophils # 0.1 10*3/uL (0.0-0.2); Basophils % 0.4 % (0.0-0.8); Eosinophils % 0.2 % (0.00-10.9); Hemoglobin 12.5 GM/DL (14.0-18.0); Immature Granulocytes % 3.7 %; Immature Granulocytes Absolute 0.44 #; Lymphocytes # 0.6 10*3/uL (1.4-4.0); Lymphocytes % 4.8 % (21.2-54.2); Mean Corpuscular HGB Conc 32.9 GM/DL (32-36); Mean Corpuscular Volume 81.7 FL (87-102); Mean Platelet Volume 11.6 FL (9.6-12.0); Monocytes % 3.2 % (1.7-12.7); Neutrophils % 87.7 % (38.7-73.9); Platelet Count 232 T/CUMM (130-400); Red Blood Count 4.65 MC/CUMM (3.8-5.5); Red Cell Distribution Width 15.6 % (9.3-17.3); White Blood Count 12.1 T/CUMM (4-12)
[2021-03-19 05:45] LABS: Band Neutrophils 1 % (0-10); Hypochromasia Slight; Lymphocytes 8 % (20-55); Microcytosis Slight; Nucleated Red Blood Cells 1 (0-5); Platelet Estimate Adequate; Segmented Neutrophils 88 % (50-85); Total Cells Counted 100
[2021-03-19 05:49] LABS: Ferritin 1891.5 ng/ml (26-388)
[2021-03-19 06:09] LABS: Albumin 2.5 G/DL (3.4-5.0); Bilirubin,Total 0.7 MG/DL (0.20-1.00); Calcium 8.1 MG/DL (8.5-10.1); Osmolality,Calculated 297.5 MOS/KG (273-304); Potassium 4.8 MMOL/L (3.5-5.1); Total Protein 7.3 G/DL (6.4-8.2)
[2021-03-19] MEDS: METOPROLOL TARTRATE 5 MG/5 ML VIAL IV PRN (06:10)
[2021-03-19] MEDS ORDERED: HALOPERIDOL 5 MG/ML AMP IM PRN (07:56)
[2021-03-19] MEDS: INSULIN LISPRO 100 UNIT/ML SUBCUT SCH ×3 (08:10→18:31)
[2021-03-19] MEDS: INSULIN GLARGINE 100 UNIT/ML SUBCUT SCH ×2 (09:00→20:31)
[2021-03-19] MEDS: DILTIAZEM 30 MG TABLET PO SCH ×3 (09:56→20:31)
[2021-03-19] MEDS: ZINC GLUCONATE 50 MG TABLET PO SCH (09:57)
[2021-03-19] MEDS: CHOLECALCIFEROL 1,000 UNIT TABLET PO SCH (09:57)
[2021-03-19] MEDS: ASCORBIC ACID 500 MG TABLET PO SCH ×2 (09:57→20:31)
[2021-03-19] MEDS: SODIUM BICARBONATE 650 MG TABLET PO SCH (09:57)
[2021-03-19] MEDS: hydroCHLOROthiazide 25 MG TABLET PO SCH (09:57)
[2021-03-19] MEDS ORDERED: OLANZapine 10 MG VIAL IM ONE (10:00)
[2021-03-19] MEDS: PANTOPRAZOLE 40 MG TABLET PO SCH (10:02)
[2021-03-19] MEDS ORDERED: ETOMIDATE 20 MG/10 ML VIAL IV ONE ×2 (10:15→10:29)
[2021-03-19] MEDS ORDERED: SUCCINYLCHOLINE 200 MG/10 ML VIAL ONE (10:15)
[2021-03-19] MEDS ORDERED: SUCCINYLCHOLINE 200 MG/10 ML VIAL IV ONE (10:30)
[2021-03-19] MEDS ORDERED: MIDAZOLAM 2 MG/2 ML VIAL ONE (10:48)
[2021-03-19] MEDS ORDERED: MIDAZOLAM 2 MG/2 ML VIAL IV ONE (10:50)
[2021-03-19] MEDS: MIDAZOLAM 100 MG in SODIUM CHLORIDE 0.9% 80 ML IV PRN (11:14)
[2021-03-19] MEDS: fentaNYL INJ 2,500 MCG in SODIUM CHLORIDE 0.9% 75 ML IV PRN ×2 (11:23→18:32)
[2021-03-19] MEDS: ROCURONIUM 1,000 MG in SODIUM CHLORIDE 0.9% 175 ML IV PRN (11:33)
[2021-03-19] MEDS ORDERED: SODIUM CHLORIDE 0.9% 500 ML IV ONE (12:05)
[2021-03-19 12:23] LABS: Allen Test Positive; Pt O2 Delivery Device Ventilator
[2021-03-19 12:24] LABS: ABG Base Excess -3.4 MMOL/L (-2.5-2.5); ABG HCO3 23.8 MMOL/L (20-26); ABG Oxygen Saturation 60.9 % (95-100); ABG PCO2 53.7 MM HG (35-48); ABG PH 7.265 (7.35-7.45); ABG PO2 41.5 MM HG (80-95); ABG TCO2 25.5 MMOL/L (23-27)
[2021-03-19] MEDS: HEPARIN DRIP 25,000 UNITS/500 ML PREMIX IV SCH ×2 (13:51→17:30)
[2021-03-19] MEDS: SODIUM BICARBONATE 650 MG TABLET PER TUBE SCH ×2 (16:34→20:31)
[2021-03-19] MEDS: cefTRIAXone 1,000 MG in SYRINGE 1 EACH IV SCH (22:11)
[2021-03-20] MEDS: ALBUTEROL INHALER 18 GM INH SCH ×4 (00:07→18:32)
[2021-03-20] MEDS: INSULIN LISPRO 100 UNIT/ML SUBCUT SCH ×4 (00:07→17:58)
[2021-03-20] MEDS: fentaNYL INJ 2,500 MCG in SODIUM CHLORIDE 0.9% 75 ML IV PRN ×2 (05:13→15:54)
[2021-03-20 05:17] LABS: ABG Base Excess -4.5 MMOL/L (-2.5-2.5); ABG HCO3 20.6 MMOL/L (20-26); ABG Oxygen Saturation 92.5 % (95-100); ABG PCO2 45.7 MM HG (35-48); ABG PH 7.292 (7.35-7.45); ABG PO2 75.5 MM HG (80-95); ABG TCO2 20.3 MMOL/L (23-27); Allen Test Positive; Pt O2 Delivery Device Ventilator
[2021-03-20 05:31] LABS: Basophils % 0.3 % (0.0-0.8); Hematocrit 32.7 VOL% (42.0-52.0); Hemoglobin 10.3 GM/DL (14.0-18.0); Immature Granulocytes % 4.2 %; Immature Granulocytes Absolute 0.31 #; Lymphocytes # 0.7 10*3/uL (1.4-4.0); Lymphocytes % 8.8 % (21.2-54.2); Mean Corpuscular HGB Conc 31.5 GM/DL (32-36); Mean Corpuscular Volume 86.3 FL (87-102); Mean Platelet Volume 11.2 FL (9.6-12.0); Neutrophils % 83.7 % (38.7-73.9); Platelet Count 213 T/CUMM (130-400); Red Blood Count 3.79 MC/CUMM (3.8-5.5); Red Cell Distribution Width 16.8 % (9.3-17.3); White Blood Count 7.4 T/CUMM (4-12)
[2021-03-20] MEDS: DEXAMETHASONE 10 MG/1 ML VIAL IV SCH ×2 (05:33→17:59)
[2021-03-20] MEDS: ROCURONIUM 1,000 MG in SODIUM CHLORIDE 0.9% 175 ML IV PRN ×2 (05:43→20:41)
[2021-03-20 05:50] LABS: Hypochromasia Slight; Lymphocytes 8 % (20-55); Segmented Neutrophils 90 % (50-85); Total Cells Counted 100
[2021-03-20 05:51] LABS: Microcytosis 1+; Platelet Estimate Normal
[2021-03-20 06:01] LABS: Albumin 1.9 G/DL (3.4-5.0); Bilirubin,Total 0.8 MG/DL (0.20-1.00); Calcium 7.4 MG/DL (8.5-10.1); Osmolality,Calculated 309.3 MOS/KG (273-304); Potassium 5.7 MMOL/L (3.5-5.1); Total Protein 6.1 G/DL (6.4-8.2)
[2021-03-20] MEDS: ZINC GLUCONATE 50 MG TABLET PO SCH (08:01)
[2021-03-20] MEDS: SODIUM BICARBONATE 650 MG TABLET PER TUBE SCH ×3 (08:01→21:15)
[2021-03-20] MEDS: CHOLECALCIFEROL 1,000 UNIT TABLET PO SCH (08:03)
[2021-03-20] MEDS: ASCORBIC ACID 500 MG TABLET PO SCH ×2 (08:03→21:15)
[2021-03-20] MEDS: PANTOPRAZOLE 40 MG TABLET PO SCH (08:04)
[2021-03-20] MEDS: INSULIN GLARGINE 100 UNIT/ML SUBCUT SCH ×2 (08:04→21:15)
[2021-03-20] MEDS: hydroCHLOROthiazide 25 MG TABLET PO SCH (08:06)
[2021-03-20] MEDS: DILTIAZEM 30 MG TABLET PO SCH ×3 (08:07→20:31)
[2021-03-20] MEDS: MIDAZOLAM 100 MG in SODIUM CHLORIDE 0.9% 80 ML IV PRN (11:38)
[2021-03-20] MEDS: HEPARIN DRIP 25,000 UNITS/500 ML PREMIX IV SCH (13:38)
[2021-03-20] MEDS ORDERED: SODIUM POLYSTYRENE SULFATE 15 GM/60 ML BOTTLE PER TUBE PRN (15:57)
[2021-03-20] MEDS: cefTRIAXone 1,000 MG in SYRINGE 1 EACH IV SCH (22:30)
[2021-03-21] MEDS: fentaNYL INJ 2,500 MCG in SODIUM CHLORIDE 0.9% 75 ML IV PRN ×3 (00:49→22:03)
[2021-03-21] MEDS: INSULIN LISPRO 100 UNIT/ML SUBCUT SCH ×7 (01:15→23:49)
[2021-03-21] MEDS: ALBUTEROL INHALER 18 GM INH SCH ×4 (02:08→19:45)
[2021-03-21 04:29] LABS: ABG Base Excess -8.8 MMOL/L (-2.5-2.5); ABG HCO3 21.3 MMOL/L (20-26); ABG Oxygen Saturation 97.2 % (95-100); ABG PO2 121.7 MM HG (80-95); ABG TCO2 23.5 MMOL/L (23-27)
[2021-03-21 04:32] LABS: ABG PCO2 69.8 MM HG (35-48); ABG PH 7.103 (7.35-7.45)
[2021-03-21] MEDS ORDERED: SODIUM BICARBONATE 50 MEQ/50 ML VIAL IV ONE (05:05)
[2021-03-21] MEDS ORDERED: INSULIN REGULAR 100 UNIT/ML IV ONE (05:28)
[2021-03-21] MEDS: NOREPINEPHRINE 16 MG in SODIUM CHLORIDE 0.9% 234 ML IV PRN (06:00)
[2021-03-21 06:05] LABS: Basophils % 0.2 % (0.0-0.8); Hematocrit 31.3 VOL% (42.0-52.0); Hemoglobin 9.6 GM/DL (14.0-18.0); Immature Granulocytes % 4.9 %; Immature Granulocytes Absolute 0.45 #; Lymphocytes # 0.4 10*3/uL (1.4-4.0); Lymphocytes % 4.1 % (21.2-54.2); Mean Corpuscular HGB Conc 30.7 GM/DL (32-36); Mean Corpuscular Volume 90.5 FL (87-102); Mean Platelet Volume 11.8 FL (9.6-12.0); Monocytes % 3.5 % (1.7-12.7); Neutrophils % 87.3 % (38.7-73.9); Platelet Count 258 T/CUMM (130-400); Red Blood Count 3.46 MC/CUMM (3.8-5.5); Red Cell Distribution Width 17.5 % (9.3-17.3); White Blood Count 9.1 T/CUMM (4-12)
[2021-03-21 06:26] LABS: Hypochromasia 1+; Lymphocytes 5 % (20-55); Microcytosis 1+; Platelet Estimate Adequate; Segmented Neutrophils 94 % (50-85); Total Cells Counted 100
[2021-03-21 06:28] LABS: Albumin 1.7 G/DL (3.4-5.0); Bilirubin,Total 0.4 MG/DL (0.20-1.00); Calcium 7.2 MG/DL (8.5-10.1); Total Protein 5.5 G/DL (6.4-8.2)
[2021-03-21] MEDS: DEXAMETHASONE 10 MG/1 ML VIAL IV SCH ×2 (06:31→18:53)
[2021-03-21] MEDS: SODIUM BICARBONATE 650 MG TABLET PER TUBE SCH ×3 (08:38→22:26)
[2021-03-21] MEDS: PANTOPRAZOLE 40 MG VIAL IV SCH (08:38)
[2021-03-21] MEDS: DILTIAZEM 30 MG TABLET PO SCH ×3 (08:39→22:25)
[2021-03-21] MEDS: CHOLECALCIFEROL 1,000 UNIT TABLET PO SCH (08:39)
[2021-03-21] MEDS: hydroCHLOROthiazide 25 MG TABLET PO SCH (08:39)
[2021-03-21] MEDS: ASCORBIC ACID 500 MG TABLET PO SCH ×2 (08:39→22:26)
[2021-03-21] MEDS: ZINC GLUCONATE 50 MG TABLET PO SCH (08:39)
[2021-03-21] MEDS: INSULIN GLARGINE 100 UNIT/ML SUBCUT SCH ×2 (08:40→22:26)
[2021-03-21 11:36] LABS: Hepatitis B Core IgM Quant 0.13 Index; Hepatitis B Surface Ag Quant < 0.10 Index; Hepatitis B Surface Ag Result Non-Reactive (NonReactive); Hepatitis C Virus Ab Quant 0.07 Index; Hepatitis C Virus Ab Result Non-Reactive (NonReactive)
[2021-03-21] MEDS: HEPARIN DRIP 25,000 UNITS/500 ML PREMIX IV SCH (12:21)
[2021-03-21] MEDS ORDERED: HEPARIN 10,000 UNIT/10 ML VIAL IV SCH (14:15)
[2021-03-21] MEDS: ROCURONIUM 1,000 MG in SODIUM CHLORIDE 0.9% 175 ML IV PRN (15:23)
[2021-03-21] MEDS: ACETAMINOPHEN 325 MG TABLET PO PRN (18:42)
[2021-03-21] MEDS: cefTRIAXone 1,000 MG in SYRINGE 1 EACH IV SCH (22:26)
[2021-03-22] MEDS: ALBUTEROL INHALER 18 GM INH SCH ×4 (02:10→20:30)
[2021-03-22] MEDS: MIDAZOLAM 100 MG in SODIUM CHLORIDE 0.9% 80 ML IV PRN (02:13)
[2021-03-22 04:59] LABS: ABG Base Excess 0.4 MMOL/L (-2.5-2.5); ABG HCO3 24.7 MMOL/L (20-26); ABG Oxygen Saturation 94.5 % (95-100); ABG PCO2 45.2 MM HG (35-48); ABG PH 7.367 (7.35-7.45); ABG PO2 76.1 MM HG (80-95); ABG TCO2 23.7 MMOL/L (23-27)
[2021-03-22] MEDS: INSULIN LISPRO 100 UNIT/ML SUBCUT SCH ×5 (05:09→21:51)
[2021-03-22 05:19] LABS: Basophils % 0.1 % (0.0-0.8); Eosinophils % 0.3 % (0.00-10.9); Hematocrit 31.6 VOL% (42.0-52.0); Hemoglobin 9.8 GM/DL (14.0-18.0); Immature Granulocytes % 4.8 %; Immature Granulocytes Absolute 0.46 #; Lymphocytes # 0.5 10*3/uL (1.4-4.0); Lymphocytes % 5.4 % (21.2-54.2); Mean Corpuscular Volume 86.6 FL (87-102); Monocytes % 2.6 % (1.7-12.7); Neutrophils % 86.8 % (38.7-73.9); Platelet Count 251 T/CUMM (130-400); Red Blood Count 3.65 MC/CUMM (3.8-5.5); Red Cell Distribution Width 17.5 % (9.3-17.3); White Blood Count 9.7 T/CUMM (4-12)
[2021-03-22] MEDS: DEXAMETHASONE 10 MG/1 ML VIAL IV SCH ×2 (05:39→17:43)
[2021-03-22 06:02] LABS: Hypochromasia 1+; Lymphocytes 4 % (20-55); Microcytosis 1+; Platelet Estimate Normal; Segmented Neutrophils 92 % (50-85); Total Cells Counted 100
[2021-03-22] MEDS: ROCURONIUM 1,000 MG in SODIUM CHLORIDE 0.9% 175 ML IV PRN (07:50)
[2021-03-22] MEDS: INSULIN GLARGINE 100 UNIT/ML SUBCUT SCH ×2 (08:10→21:55)
[2021-03-22] MEDS: PANTOPRAZOLE 40 MG VIAL IV SCH (08:10)
[2021-03-22] MEDS: ZINC GLUCONATE 50 MG TABLET PO SCH (08:11)
[2021-03-22] MEDS: hydroCHLOROthiazide 25 MG TABLET PO SCH (08:11)
[2021-03-22] MEDS: CHOLECALCIFEROL 1,000 UNIT TABLET PO SCH (08:11)
[2021-03-22] MEDS: DILTIAZEM 30 MG TABLET PO SCH ×3 (08:11→20:30)
[2021-03-22] MEDS: SODIUM BICARBONATE 650 MG TABLET PER TUBE SCH ×3 (08:11→21:55)
[2021-03-22] MEDS: ASCORBIC ACID 500 MG TABLET PO SCH ×2 (08:12→21:55)
[2021-03-22 08:39] LABS: Alanine Aminotransferase 35 U/L (16-61); Albumin 1.6 G/DL (3.4-5.0); Alkaline Phosphatase 70 U/L (45-117); Aspartate Amino Transferase 42 U/L (0-37); Bilirubin,Total < 0.39 MG/DL (0.20-1.00); Blood Urea Nitrogen 114 MG/DL (7-18); Calcium 7.4 MG/DL (8.5-10.1); Carbon Dioxide 29 MMOL/L (21-32); Estimated Glom Filtration Rate 12 ML/MIN; Glucose 84 MG/DL (74-106); Osmolality,Calculated 311.5 MOS/KG (273-304); Potassium 5.9 MMOL/L (3.5-5.1); Sodium 139 MMOL/L (136-145)
[2021-03-22] MEDS: fentaNYL INJ 2,500 MCG in SODIUM CHLORIDE 0.9% 75 ML IV PRN ×2 (09:04→18:25)
[2021-03-22] MEDS: HEPARIN DRIP 25,000 UNITS/500 ML PREMIX IV SCH (17:41)
[2021-03-22] MEDS: cefTRIAXone 1,000 MG in SYRINGE 1 EACH IV SCH (22:00)
[2021-03-23] MEDS: INSULIN LISPRO 100 UNIT/ML SUBCUT SCH ×6 (00:56→21:12)
[2021-03-23] MEDS: ALBUTEROL INHALER 18 GM INH SCH ×4 (01:11→23:42)
[2021-03-23] MEDS: ROCURONIUM 1,000 MG in SODIUM CHLORIDE 0.9% 175 ML IV PRN ×2 (01:12→20:27)
[2021-03-23 04:19] LABS: ABG Base Excess 0.4 MMOL/L (-2.5-2.5); ABG HCO3 24.8 MMOL/L (20-26); ABG Oxygen Saturation 97.8 % (95-100); ABG PCO2 49.6 MM HG (35-48); ABG PH 7.338 (7.35-7.45); ABG TCO2 24.7 MMOL/L (23-27)
[2021-03-23 04:39] LABS: Eosinophils # 0.1 10*3/uL (0.0-0.87); Eosinophils % 0.5 % (0.00-10.9); Hematocrit 27.4 VOL% (42.0-52.0); Hemoglobin 8.5 GM/DL (14.0-18.0); Immature Granulocytes % 2.4 %; Immature Granulocytes Absolute 0.23 #; Lymphocytes # 0.4 10*3/uL (1.4-4.0); Lymphocytes % 4.1 % (21.2-54.2); Mean Corpuscular Volume 87.8 FL (87-102); Monocytes % 2.6 % (1.7-12.7); Neutrophils % 90.4 % (38.7-73.9); Platelet Count 219 T/CUMM (130-400); Red Blood Count 3.12 MC/CUMM (3.8-5.5); Red Cell Distribution Width 17.4 % (9.3-17.3); White Blood Count 9.6 T/CUMM (4-12)
[2021-03-23] MEDS: fentaNYL INJ 2,500 MCG in SODIUM CHLORIDE 0.9% 75 ML IV PRN ×2 (04:40→14:24)
[2021-03-23 05:00] LABS: Calcium 7.2 MG/DL (8.5-10.1); Potassium 5.6 MMOL/L (3.5-5.1)
[2021-03-23 05:36] LABS: Band Neutrophils 2 % (0-10); Hypochromasia Slight; Lymphocytes 2 % (20-55); Platelet Estimate Normal; Segmented Neutrophils 94 % (50-85); Total Cells Counted 100
[2021-03-23] MEDS: DEXAMETHASONE 10 MG/1 ML VIAL IV SCH ×2 (05:43→17:55)
[2021-03-23] MEDS: PANTOPRAZOLE 40 MG VIAL IV SCH (08:18)
[2021-03-23] MEDS: INSULIN GLARGINE 100 UNIT/ML SUBCUT SCH ×2 (08:19→20:25)
[2021-03-23] MEDS: DILTIAZEM 30 MG TABLET PO SCH ×3 (08:20→20:24)
[2021-03-23] MEDS: CHOLECALCIFEROL 1,000 UNIT TABLET PO SCH (08:20)
[2021-03-23] MEDS: hydroCHLOROthiazide 25 MG TABLET PO SCH (08:21)
[2021-03-23] MEDS: ZINC GLUCONATE 50 MG TABLET PO SCH (08:21)
[2021-03-23] MEDS: SODIUM BICARBONATE 650 MG TABLET PER TUBE SCH ×3 (08:21→20:24)
[2021-03-23] MEDS: ASCORBIC ACID 500 MG TABLET PO SCH ×2 (08:21→20:24)
[2021-03-23] MEDS: HEPARIN DRIP 25,000 UNITS/500 ML PREMIX IV SCH (12:25)
[2021-03-23] MEDS: cefTRIAXone 1,000 MG in SYRINGE 1 EACH IV SCH (21:13)
[2021-03-24] MEDS: INSULIN LISPRO 100 UNIT/ML SUBCUT SCH ×6 (00:45→20:31)
[2021-03-24] MEDS: fentaNYL INJ 2,500 MCG in SODIUM CHLORIDE 0.9% 75 ML IV PRN ×3 (00:46→21:31)
[2021-03-24] MEDS: MIDAZOLAM 100 MG in SODIUM CHLORIDE 0.9% 80 ML IV PRN (02:00)
[2021-03-24 04:19] LABS: Basophils % 0.1 % (0.0-0.8); Eosinophils % 0.2 % (0.00-10.9); Hematocrit 30.3 VOL% (42.0-52.0); Hemoglobin 9.5 GM/DL (14.0-18.0); Immature Granulocytes % 2.5 %; Lymphocytes # 0.3 10*3/uL (1.4-4.0); Lymphocytes % 2.8 % (21.2-54.2); Mean Corpuscular HGB Conc 31.4 GM/DL (32-36); Mean Corpuscular Volume 84.6 FL (87-102); Mean Platelet Volume 11.2 FL (9.6-12.0); Monocytes % 3.5 % (1.7-12.7); Neutrophils % 90.9 % (38.7-73.9); Platelet Count 230 T/CUMM (130-400); Red Blood Count 3.58 MC/CUMM (3.8-5.5); Red Cell Distribution Width 17.2 % (9.3-17.3); White Blood Count 12.1 T/CUMM (4-12)
[2021-03-24] MEDS: ALBUTEROL INHALER 18 GM INH SCH ×4 (04:40→18:06)
[2021-03-24 04:46] LABS: Band Neutrophils 3 % (0-10); Calcium 7.6 MG/DL (8.5-10.1); Hypochromasia 1+; Lymphocytes 4 % (20-55); Microcytosis 1+; Platelet Estimate Adequate; Potassium 5.5 MMOL/L (3.5-5.1); Segmented Neutrophils 91 % (50-85); Total Cells Counted 100
[2021-03-24 04:47] LABS: Ovalocytes Slight
[2021-03-24 05:04] LABS: ABG Base Excess -1.3 MMOL/L (-2.5-2.5); ABG HCO3 23.1 MMOL/L (20-26); ABG PCO2 40.8 MM HG (35-48); ABG PH 7.374 (7.35-7.45); ABG PO2 66.8 MM HG (80-95); ABG TCO2 20.7 MMOL/L (23-27)
[2021-03-24] MEDS: DEXAMETHASONE 10 MG/1 ML VIAL IV SCH ×2 (05:08→17:35)
[2021-03-24] MEDS: hydrALAZINE 20 MG/1 ML VIAL IV PRN (05:09)
[2021-03-24] MEDS: PANTOPRAZOLE 40 MG VIAL IV SCH (08:10)
[2021-03-24] MEDS: hydroCHLOROthiazide 25 MG TABLET PO SCH (08:15)
[2021-03-24] MEDS: INSULIN GLARGINE 100 UNIT/ML SUBCUT SCH ×2 (08:15→20:32)
[2021-03-24] MEDS: DILTIAZEM 30 MG TABLET PO SCH ×2 (08:15→20:32)
[2021-03-24] MEDS: SODIUM BICARBONATE 650 MG TABLET PER TUBE SCH ×3 (08:16→20:32)
[2021-03-24] MEDS: ASCORBIC ACID 500 MG TABLET PO SCH ×2 (08:16→20:32)
[2021-03-24] MEDS: CHOLECALCIFEROL 1,000 UNIT TABLET PO SCH (08:16)
[2021-03-24] MEDS: ZINC GLUCONATE 50 MG TABLET PO SCH (08:16)
[2021-03-24] MEDS: HEPARIN DRIP 25,000 UNITS/500 ML PREMIX IV SCH (08:53)
[2021-03-24] MEDS: cefTRIAXone 1,000 MG in SYRINGE 1 EACH IV SCH (21:31)
[2021-03-25] MEDS: ALBUTEROL INHALER 18 GM INH SCH ×4 (00:44→20:44)
[2021-03-25] MEDS: INSULIN LISPRO 100 UNIT/ML SUBCUT SCH ×6 (00:44→20:44)
[2021-03-25 04:00] LABS: Potassium 6.5 MMOL/L (3.5-5.1)
[2021-03-25 05:04] LABS: ABG Base Excess -3.6 MMOL/L (-2.5-2.5); ABG HCO3 23.7 MMOL/L (20-26); ABG Oxygen Saturation 96.2 % (95-100); ABG PH 7.261 (7.35-7.45); ABG PO2 101.4 MM HG (80-95); ABG TCO2 25.4 MMOL/L (23-27)
[2021-03-25 05:33] LABS: Basophils % 0.1 % (0.0-0.8); Eosinophils # 0.1 10*3/uL (0.0-0.87); Eosinophils % 0.3 % (0.00-10.9); Hematocrit 32.3 VOL% (42.0-52.0); Hemoglobin 10.3 GM/DL (14.0-18.0); Immature Granulocytes % 1.3 %; Immature Granulocytes Absolute 0.19 #; Lymphocytes # 0.5 10*3/uL (1.4-4.0); Lymphocytes % 3.6 % (21.2-54.2); Mean Corpuscular HGB Conc 31.9 GM/DL (32-36); Mean Corpuscular Volume 85.2 FL (87-102); Mean Platelet Volume 11.4 FL (9.6-12.0); Monocytes % 4.4 % (1.7-12.7); Neutrophils % 90.3 % (38.7-73.9); Platelet Count 259 T/CUMM (130-400); Red Blood Count 3.79 MC/CUMM (3.8-5.5); Red Cell Distribution Width 17.2 % (9.3-17.3); White Blood Count 14.5 T/CUMM (4-12)
[2021-03-25] MEDS: DEXAMETHASONE 10 MG/1 ML VIAL IV SCH ×2 (05:59→17:45)
[2021-03-25 06:00] LABS: Lymphocytes 3 % (20-55); Platelet Estimate Normal; Segmented Neutrophils 95 % (50-85); Total Cells Counted 100
[2021-03-25 06:05] LABS: Albumin 1.4 G/DL (3.4-5.0); Bilirubin,Total 0.8 MG/DL (0.20-1.00); Calcium 7.9 MG/DL (8.5-10.1); Ferritin 1319.2 ng/ml (26-388); Osmolality,Calculated 304.2 MOS/KG (273-304); Potassium 5.6 MMOL/L (3.5-5.1); Total Protein 7.2 G/DL (6.4-8.2)
[2021-03-25] MEDS: hydrALAZINE 20 MG/1 ML VIAL IV PRN (06:33)
[2021-03-25] MEDS: fentaNYL INJ 2,500 MCG in SODIUM CHLORIDE 0.9% 75 ML IV PRN (07:30)
[2021-03-25] MEDS: PANTOPRAZOLE 40 MG VIAL IV SCH (08:40)
[2021-03-25] MEDS: DILTIAZEM 30 MG TABLET PO SCH ×3 (08:44→20:44)
[2021-03-25] MEDS: HEPARIN DRIP 25,000 UNITS/500 ML PREMIX IV SCH (08:44)
[2021-03-25] MEDS: CHOLECALCIFEROL 1,000 UNIT TABLET PO SCH (08:44)
[2021-03-25] MEDS: ZINC GLUCONATE 50 MG TABLET PO SCH (08:44)
[2021-03-25] MEDS: ASCORBIC ACID 500 MG TABLET PO SCH ×2 (08:45→20:44)
[2021-03-25] MEDS: SODIUM BICARBONATE 650 MG TABLET PER TUBE SCH ×3 (08:45→20:44)
[2021-03-25] MEDS: INSULIN GLARGINE 100 UNIT/ML SUBCUT SCH ×2 (08:45→20:44)
[2021-03-25] MEDS: METOCLOPRAMIDE 10 MG/2 ML VIAL IV SCH ×3 (10:27→22:31)
[2021-03-25] MEDS: HEPARIN 5,000 UNIT/1 ML VIAL IV PRN (13:19)
[2021-03-25] MEDS: LACTULOSE 20 GM/30 ML UDCUP PO SCH ×2 (14:27→21:16)
[2021-03-26] MEDS: fentaNYL INJ 2,500 MCG in SODIUM CHLORIDE 0.9% 75 ML IV PRN (00:51)
[2021-03-26] MEDS: ALBUTEROL INHALER 18 GM INH SCH ×3 (00:58→20:07)
[2021-03-26] MEDS: INSULIN LISPRO 100 UNIT/ML SUBCUT SCH ×6 (00:58→21:04)
[2021-03-26 04:19] LABS: Basophils % 0.1 % (0.0-0.8); Hematocrit 30.1 VOL% (42.0-52.0); Hemoglobin 9.3 GM/DL (14.0-18.0); Immature Granulocytes % 1.4 %; Lymphocytes # 0.4 10*3/uL (1.4-4.0); Lymphocytes % 2.6 % (21.2-54.2); Mean Corpuscular HGB Conc 30.9 GM/DL (32-36); Mean Corpuscular Volume 85.5 FL (87-102); Mean Platelet Volume 11.7 FL (9.6-12.0); Monocytes % 4.9 % (1.7-12.7); Platelet Count 241 T/CUMM (130-400); Red Blood Count 3.52 MC/CUMM (3.8-5.5); Red Cell Distribution Width 17.2 % (9.3-17.3); White Blood Count 14.7 T/CUMM (4-12)
[2021-03-26 04:36] LABS: Ferritin 1240.9 ng/ml (26-388)
[2021-03-26 04:42] LABS: Hypochromasia 1+; Lymphocytes 1 % (20-55); Microcytosis 1+; Platelet Estimate Adequate; Segmented Neutrophils 94 % (50-85); Total Cells Counted 100
[2021-03-26 04:56] LABS: ABG Base Excess -4.3 MMOL/L (-2.5-2.5); ABG HCO3 20.8 MMOL/L (20-26); ABG Oxygen Saturation 95.2 % (95-100); ABG PCO2 41.4 MM HG (35-48); ABG PH 7.324 (7.35-7.45); ABG PO2 92.1 MM HG (80-95); ABG TCO2 19.7 MMOL/L (23-27)
[2021-03-26] MEDS: METOCLOPRAMIDE 10 MG/2 ML VIAL IV SCH ×4 (05:01→21:36)
[2021-03-26] MEDS: HEPARIN DRIP 25,000 UNITS/500 ML PREMIX IV SCH ×3 (05:32→23:42)
[2021-03-26] MEDS: DEXAMETHASONE 10 MG/1 ML VIAL IV SCH (06:30)
[2021-03-26] MEDS: LACTULOSE 20 GM/30 ML UDCUP PO SCH ×3 (06:30→21:04)
[2021-03-26 08:40] LABS: Calcium 7.2 MG/DL (8.5-10.1); Potassium 5.9 MMOL/L (3.5-5.1)
[2021-03-26] MEDS: INSULIN GLARGINE 100 UNIT/ML SUBCUT SCH (09:03)
[2021-03-26] MEDS: DILTIAZEM 30 MG TABLET PO SCH ×3 (10:30→21:05)
[2021-03-26] MEDS: ASCORBIC ACID 500 MG TABLET PO SCH ×2 (10:50→21:05)
[2021-03-26] MEDS: ZINC GLUCONATE 50 MG TABLET PO SCH (10:51)
[2021-03-26] MEDS: SODIUM BICARBONATE 650 MG TABLET PER TUBE SCH ×3 (10:51→21:05)
[2021-03-26] MEDS: CHOLECALCIFEROL 1,000 UNIT TABLET PO SCH (10:51)
[2021-03-26] MEDS: PANTOPRAZOLE 40 MG VIAL IV SCH (10:51)
[2021-03-26 15:31] VITALS: BP 97/79
[2021-03-26] MEDS: NOREPINEPHRINE 16 MG in SODIUM CHLORIDE 0.9% 234 ML IV PRN (19:13)
[2021-03-26] MEDS ORDERED: PHENYLEPHRINE DRIP 40 MG/250 ML PREMIX IV ONE (19:54)
[2021-03-26] MEDS ORDERED: PHENYLEPHRINE INJ 160 MG in SODIUM CHLORIDE 0.9% 234 ML IV PRN (20:01)
[2021-03-26] MEDS ORDERED: PHENYLEPHRINE DRIP 40 MG/250 ML PREMIX IV PRN (20:01)
[2021-03-26 20:34] LABS: ABG Base Excess -13.3 MMOL/L (-2.5-2.5); ABG HCO3 13.7 MMOL/L (20-26); ABG Oxygen Saturation 64.4 % (95-100); ABG PO2 50.4 MM HG (80-95); ABG TCO2 16.6 MMOL/L (23-27)
[2021-03-26 20:35] LABS: ABG PH 7.082 (7.35-7.45)
[2021-03-26] MEDS: methylPREDNISolone SOD SUC 40 MG/1 ML VIAL IV SCH (21:05)
[2021-03-26 21:29] LABS: Calcium 7.7 MG/DL (8.5-10.1)
[2021-03-26 21:30] LABS: Albumin 1.4 G/DL (3.4-5.0); Osmolality,Calculated 316.4 MOS/KG (273-304)
[2021-03-26 21:38] LABS: Bilirubin,Total 0.5 MG/DL (0.20-1.00); Total Protein 7.3 G/DL (6.4-8.2)
[2021-03-26 21:39] LABS: Potassium 7.8 MMOL/L (3.5-5.1)
[2021-03-26] MEDS ORDERED: SODIUM POLYSTYRENE SULFATE 15 GM/60 ML BOTTLE PO ONE (21:47)
[2021-03-26] MEDS ORDERED: SODIUM POLYSTYRENE SULFATE 15 GM/60 ML BOTTLE RECTAL ONE (21:48)
[2021-03-26 23:38] LABS: ABG Base Excess -9.9 MMOL/L (-2.5-2.5); ABG HCO3 18.2 MMOL/L (20-26); ABG Oxygen Saturation 86.2 % (95-100); ABG PCO2 49.9 MM HG (35-48); ABG PO2 68.6 MM HG (80-95); ABG TCO2 19.8 MMOL/L (23-27)
[2021-03-26 23:39] LABS: ABG PH 7.181 (7.35-7.45)
[2021-03-26] MEDS: SODIUM BICARB INJ 150 MEQ in STERILE WATER INJ 850 ML IV SCH (23:50)
[2021-03-27] MEDS: INSULIN LISPRO 100 UNIT/ML SUBCUT SCH ×8 (00:38→23:52)
[2021-03-27] MEDS: ALBUTEROL INHALER 18 GM INH SCH ×4 (00:39→18:21)
[2021-03-27 03:28] LABS: Basophils # 0.1 10*3/uL (0.0-0.2); Basophils % 0.3 % (0.0-0.8); Eosinophils % 0.1 % (0.00-10.9); Hematocrit 34.4 VOL% (42.0-52.0); Hemoglobin 10.7 GM/DL (14.0-18.0); Immature Granulocytes % 1.2 %; Immature Granulocytes Absolute 0.33 #; Lymphocytes # 0.7 10*3/uL (1.4-4.0); Lymphocytes % 2.5 % (21.2-54.2); Mean Corpuscular HGB Conc 31.1 GM/DL (32-36); Mean Corpuscular Volume 86.9 FL (87-102); Mean Platelet Volume 11.5 FL (9.6-12.0); Monocytes % 3.1 % (1.7-12.7); NRBC # 0.02 10*3/uL; Neutrophils % 92.8 % (38.7-73.9); Platelet Count 316 T/CUMM (130-400); Red Blood Count 3.96 MC/CUMM (3.8-5.5); Red Cell Distribution Width 17.7 % (9.3-17.3); White Blood Count 27.8 T/CUMM (4-12)
[2021-03-27 03:54] LABS: Band Neutrophils 3 % (0-10); Lymphocytes 2 % (20-55); Segmented Neutrophils 93 % (50-85); Total Cells Counted 100
[2021-03-27 03:55] LABS: Hypochromasia Slight; Platelet Estimate Normal
[2021-03-27 04:08] LABS: Albumin 1.5 G/DL (3.4-5.0); Bilirubin,Total 1.5 MG/DL (0.20-1.00); Calcium 7.4 MG/DL (8.5-10.1); Osmolality,Calculated 316.4 MOS/KG (273-304); Total Protein 7.6 G/DL (6.4-8.2)
[2021-03-27] MEDS ORDERED: SODIUM POLYSTYRENE SULFATE 15 GM/60 ML BOTTLE RECTAL ONE (04:13)
[2021-03-27] MEDS ORDERED: SODIUM POLYSTYRENE SULFATE 15 GM/60 ML BOTTLE PO ONE (04:13)
[2021-03-27 04:14] LABS: Potassium 7.7 MMOL/L (3.5-5.1)
[2021-03-27] MEDS ORDERED: INSULIN REGULAR 10 UNIT, CALCIUM GLUCONATE 1,000 MG in DEXTROSE 10% 250 ML IV ONE ×3 (04:57→21:00)
[2021-03-27] MEDS ORDERED: SODIUM BICARBONATE 50 MEQ/50 ML VIAL IV ONE (04:57)
[2021-03-27] MEDS: METOCLOPRAMIDE 10 MG/2 ML VIAL IV SCH ×4 (05:05→20:55)
[2021-03-27] MEDS: LACTULOSE 20 GM/30 ML UDCUP PO SCH ×3 (05:06→21:18)
[2021-03-27] MEDS: CHOLECALCIFEROL 1,000 UNIT TABLET PO SCH (08:35)
[2021-03-27] MEDS: SODIUM BICARBONATE 650 MG TABLET PER TUBE SCH ×3 (08:35→20:55)
[2021-03-27] MEDS: ZINC GLUCONATE 50 MG TABLET PO SCH (08:35)
[2021-03-27] MEDS: DILTIAZEM 30 MG TABLET PO SCH ×3 (08:35→20:55)
[2021-03-27] MEDS: methylPREDNISolone SOD SUC 40 MG/1 ML VIAL IV SCH ×2 (08:36→20:55)
[2021-03-27] MEDS: PANTOPRAZOLE 40 MG VIAL IV SCH (08:36)
[2021-03-27] MEDS: ASCORBIC ACID 500 MG TABLET PO SCH ×2 (08:39→20:55)
[2021-03-27 09:24] LABS: ABG Base Excess -6.6 MMOL/L (-2.5-2.5); ABG HCO3 19.9 MMOL/L (20-26); ABG PCO2 43.3 MM HG (35-48); ABG PH 7.281 (7.35-7.45); ABG PO2 118.7 MM HG (80-95); ABG TCO2 21.3 MMOL/L (23-27)
[2021-03-27] MEDS ORDERED: ALTEPLASE 2 MG VIAL IV ONE (09:30)
[2021-03-27] MEDS: ACETAMINOPHEN 325 MG TABLET PO PRN (10:45)
[2021-03-27 11:00] LABS: Calcium 7.2 MG/DL (8.5-10.1); Osmolality,Calculated 321.1 MOS/KG (273-304)
[2021-03-27 11:02] LABS: Potassium 7.6 MMOL/L (3.5-5.1)
[2021-03-27] MEDS: HEPARIN DRIP 25,000 UNITS/500 ML PREMIX IV SCH (12:23)
[2021-03-27] MEDS: SODIUM BICARB INJ 150 MEQ in STERILE WATER INJ 850 ML IV SCH (12:45)
[2021-03-27] MEDS ORDERED: VANCOMYCIN INJ 750 MG in SODIUM CHLORIDE 0.9% 250 ML IV PRN (14:18)
[2021-03-27] MEDS ORDERED: MEROPENEM 500 MG in SODIUM CHLORIDE 0.9% 100 ML IV SCH (15:00)
[2021-03-27 16:39] LABS: Calcium 7.4 MG/DL (8.5-10.1); Osmolality,Calculated 306.2 MOS/KG (273-304)
[2021-03-27 16:44] LABS: Potassium 6.6 MMOL/L (3.5-5.1)
[2021-03-27] MEDS ORDERED: VANCOMYCIN INJ 2,500 MG in SODIUM CHLORIDE 0.9% 500 ML IV ONE (17:00)
[2021-03-27 18:40] LABS: Amorphous Crystals,Urine Occasional /HPF (Few); Bacteria,Urine Occasional /HPF (Few); Bilirubin,Urine Negative (Negative); Blood, Urine Large mg/dL (Negative); Glucose,Urine (UA) Negative (Negative); Ketones,Urine Negative (Negative); Nitrite,Urine Negative (Negative); Protein,Urine 30 MG/DL; RBC,Urine 46 /HPF (0-4); Sperm,Urine Occasional /HPF (Negative); Urine Appearance CLOUDY (Clear); Urine Color Amber (Yellow); Urine Specific Gravity 1.008 (1.001-1.035); Urine Urobilinogen < 2.0 EU/DL (0.2-1.0)
[2021-03-27] MEDS: NOREPINEPHRINE 16 MG in SODIUM CHLORIDE 0.9% 234 ML IV PRN (20:34)
[2021-03-28] MEDS: ALBUTEROL INHALER 18 GM INH SCH (00:04)
[2021-03-28] MEDS: ACETAMINOPHEN 325 MG TABLET PO PRN (00:04)
[2021-03-28] MEDS: NOREPINEPHRINE 16 MG in SODIUM CHLORIDE 0.9% 234 ML IV PRN (02:14)
[2021-03-28 02:50] LABS: ABG Base Excess -3.8 MMOL/L (-2.5-2.5); ABG HCO3 22.2 MMOL/L (20-26); ABG Oxygen Saturation 98.5 % (95-100); ABG PCO2 44.4 MM HG (35-48); ABG PH 7.317 (7.35-7.45); ABG PO2 214.3 MM HG (80-95); ABG TCO2 23.6 MMOL/L (23-27)
[2021-03-28] MEDS: METOCLOPRAMIDE 10 MG/2 ML VIAL IV SCH (03:57)
[2021-03-28] MEDS: INSULIN LISPRO 100 UNIT/ML SUBCUT SCH (04:37)
[2021-03-28 04:39] LABS: Basophils # 0.1 10*3/uL (0.0-0.2); Basophils % 0.3 % (0.0-0.8); Hematocrit 28.9 VOL% (42.0-52.0); Hemoglobin 9.1 GM/DL (14.0-18.0); Immature Granulocytes % 1.5 %; Immature Granulocytes Absolute 0.27 #; Lymphocytes # 1.2 10*3/uL (1.4-4.0); Lymphocytes % 6.7 % (21.2-54.2); Mean Corpuscular HGB Conc 31.5 GM/DL (32-36); Mean Corpuscular Volume 86.3 FL (87-102); Monocytes % 4.4 % (1.7-12.7); Neutrophils % 87.1 % (38.7-73.9); Platelet Count 254 T/CUMM (130-400); Red Blood Count 3.35 MC/CUMM (3.8-5.5); White Blood Count 17.7 T/CUMM (4-12)
[2021-03-28 05:04] LABS: Band Neutrophils 8 % (0-10); Hypochromasia 1+; Lymphocytes 5 % (20-55); Microcytosis 1+; Platelet Estimate Adequate; Segmented Neutrophils 79 % (50-85); Total Cells Counted 100
[2021-03-28 05:08] LABS: Albumin 1.2 G/DL (3.4-5.0); Bilirubin,Total 0.9 MG/DL (0.20-1.00); Calcium 6.4 MG/DL (8.5-10.1); Osmolality,Calculated 306.7 MOS/KG (273-304); Total Protein 6.3 G/DL (6.4-8.2)
[2021-03-28 05:20] LABS: Potassium 8.2 MMOL/L (3.5-5.1)
[2021-03-28] MEDS ORDERED: INSULIN REGULAR 10 UNIT, CALCIUM GLUCONATE 1,000 MG in DEXTROSE 10% 250 ML IV ONE (05:26)
[2021-03-28] MEDS ORDERED: SODIUM BICARBONATE 50 MEQ/50 ML VIAL IV ONE (05:26)
[2021-03-28 05:29] LABS: Ferritin 10061.8 ng/ml (26-388)
[2021-03-28] MEDS: LACTULOSE 20 GM/30 ML UDCUP PO SCH (05:38)
[2021-03-28] MEDS ORDERED: SODIUM BICARBONATE 50 MEQ/50 ML SYRINGE IV ONE (08:22)
[2021-03-28] MEDS ORDERED: EPINEPHrine 1 MG/10 ML SYRINGE ONE (08:22)
[2021-03-28] MEDS ORDERED: CALCIUM CHLORIDE 1,000 MG/10 ML SYRINGE IV ONE (08:22)
== END 2021-03-28 07:06 | disposition expired | DRG 870 ==
LOC: EDBD → EDUNIT# → N.ED 21:25 → SUATTDRO 23:20 → N.EDINP 23:20 → N.2E 03-15 19:30 → N.CC 03-16 01:16
PROVIDERS: ADMIT Internal Medicine; ATTEND Family Medicine